=== PATIENT | female | born 1945 | race Caucasian/White ===

== ENCOUNTER 2017-09-11 08:59 | Emergency (ER) | payer MEDICARE, OTHER ==
[2017-09-11] MEDS ORDERED: Albuterol 2.5 MG/3 ML NEB.SOL* (0.083%) INH ONE (09:47)
[2017-09-11] MEDS ORDERED: Ipratropium 0.5MG/2.5ML NEB* 0.5 MG/2.5 ML NEB.SOLN INH ONE (09:47)
[2017-09-11 11:15] VITALS: BP 145/81
--- NOTE | 2017-09-11 11:21 | UC ---
Don Martinez Nilda, scribed for Kelli Rosa DO on 09/11/17 at 0955 . FLU HPI - HPI Summary HPI Summary: This patient is a 72 year old F presenting to [facility] [place] with a chief complaint of constant flu-like symptoms since yesterday. The patient rates the aching pain 8/ 10 in severity. Symptoms aggravated by movement and alleviated by rest and acetaminophen. Patient reports fever (100F), myalgia, non-productive cough, sinus congestion, left ear ache (yesterday, now resolved), and sore throat. She denies N/V, urinary symptoms, recent falls, and confusion. She also denies seasonal allergies. Flu vaccine UTD. Pt is a former smoker who states she smoked for 30- 40 years, 1 ppd. - History of Current Complaint Chief Complaint: UCRespiratory Stated Complaint: FEVER,BODYACHES,COUGH Time Seen by Provider: 09/11/17 09:05 Hx Obtained From: Patient Onset/Duration: Sudden Onset, Lasting Days, Still Present Severity Initially: Severe Pain Intensity: 8 Pain Scale Used: 0-10 Numeric Associated Signs & Symptoms: Positive: Fever, T Max - 100F, Myalgia, Cough, Sore Throat, Nasal Congestion, Headache Related Hx: Smoking - former smoker for 30-40 years 1 ppd - Allergy/Home Medications Allergies/Adverse Reactions: Allergies Allergy/AdvReac Type Severity Reaction Status Date / Time Glipizide Allergy Severe Rash Verified 09/11/17 09:09 Oxycodone Allergy Severe See Comment Verified 09/11/17 09:09 Pioglitazone [From Actos] Allergy Severe chest pain Verified 09/11/17 09:09 Ranitidine [From Zantac] Allergy Severe n/v Verified 09/11/17 09:09 Midazolam [From Versed] Allergy respiratory Verified 09/11/17 09:09 failure Belladonna AdvReac Intermediate Headache Verified 09/11/17 09:09 Diazepam [From Valium] AdvReac Intermediate Altered Verified 09/11/17 09:09 Mental Status Metformin AdvReac Intermediate GI Upset Verified 09/11/17 09:09 Home Medications: Home Medications Acetaminophen [Acetaminophen Extra Stren] 500 mg PO Q6H PRN 09/11/17 [History Confirmed 09/11/17] Liraglutide [Victoza] 1.6 mg SC QPM 09/11/17 [History Confirmed 09/11/17] PMH/Surg Hx/FS Hx/Imm Hx Endocrine History: Diabetes Cardiovascular History: Cardiac Disease Other History Of: Anticoagulant Therapy - Surgical History Surgical History: Yes Surgery Procedure, Year, and Place: hysterectomy, 1970s. cholestectomy stents, 1999 and 2000. L carotid disection W/ STENT PLACEMENT. PTCA W/ STENTS - Family History Known Family History: Positive: Cardiac Disease - father, Other - HLD Negative: Hypertension - Social History Alcohol Use: Rare Substance Use Type: None Smoking Status (MU): Former Smoker Have You Smoked in the Last Year: No - Immunization History Most Recent Influenza Vaccination: 2012 Most Recent Tetanus Shot: unknown Most Recent Pneumonia Vaccination: 2008 Review of Systems Constitutional: Fever ENT: Sore Throat, Ear Ache - left, resolved, Sinus Congestion Respiratory: Cough - nonproductive Gastrointestinal: Other - negative N/V Genitourinary: Other - negative urinary symptoms Musculoskeletal: Myalgia Neurological: Other - negative recent fall, confusion All Other Systems Reviewed And Are Negative: Yes Physical Exam Triage Information Reviewed: Yes Appearance: Well-Appearing, No Pain Distress, Well-Nourished Vital Signs: Initial Vital Signs Temp 98.2 F 09/11/17 09:14 Pulse 76 09/11/17 09:14 Resp 18 09/11/17 09:14 BP 136/62 09/11/17 09:14 Pulse Ox 96 09/11/17 09:14 Vital Signs Reviewed: Yes Eyes: Positive: Conjunctiva Clear. Negative: Discharge ENT: Positive: Hearing grossly normal, Pharynx normal, TMs normal. Negative: Tonsillar swelling, Tonsillar exudate, Trismus, Muffled voice, Hoarse voice Neck: Positive: Supple, Nontender Respiratory: Positive: No respiratory distress, No accessory muscle use, Other: - scattered wheezes and prolonged expiration on bilateral bases Cardiovascular: Positive: RRR, No Murmur Abdomen Description: Positive: Nontender, Soft. Negative: Distended, Guarding Bowel Sounds: Positive: Present Musculoskeletal Exam: Normal Neurological: Positive: Alert, Muscle Tone Normal Psychological Exam: Normal Psychological: Positive: Age Appropriate Behavior Skin Exam: Normal Skin: Positive: Other - Warm, Dry, Normal color Re-Evaluation - Re-Evaluation First Eval Re-Evaluation Time: 10:55 Comment: Pt feels better after neb treatment. Reviewed D/C instructions. Pt is agreeable to D/C. Flu Course/Dx - Course Course Of Treatment: This patient is a 72 year old F presenting to [facility] [place] with a chief complaint of constant flu-like symptoms since yesterday. The patient rates the aching pain 8/10 in severity. Symptoms aggravated by movement and alleviated by rest and acetaminophen. Patient reports fever (100F), myalgia, non-productive cough, sinus congestion, left ear ache (yesterday, now resolved) , and sore throat. She denies N/V, urinary symptoms, recent falls, and confusion. She also denies seasonal allergies. Flu vaccine UTD. Pt is a former smoker who states she smoked for 30-40 years, 1 ppd. Pending labs. Pt is negative for influenza A and B. In the [facility] course the patient was given Ventolin and Atrovan. She feels better after neb treatment. Patient will be discharged with prescription for albuterol and Mucinex and follow up from PCP. I considered starting pt on a steroid but decided against it because I did not hear wheezing on re-eval, her blood sugar has been running around the 200s, and her A1c is still around 8. Pt is also on Victoza and Lantis. Rather than starting her on steroid now, I will call pt tomorrow and see how she is doing with just an inhaler and Mucinex. The patient is agreeable with this plan. Medications reviewed. Allergies reviewed. High blood pressure noted. Pt is Dx with sinusitis with bronchospasm and elevated BP without diagnosis of HTN. - Differential Dx/Diagnosis Provider Diagnoses: Elevated blood pressure without diagnosis of hypertension. Sinusitis with bronchospasm. Discharge - Discharge Plan Condition: Stable Disposition: HOME Prescriptions: Albuterol HFA INHALER* [Ventolin HFA Inhaler*] 2 puff INH Q4H PRN #1 mdi PRN Reason: Sob/Wheezing guaiFENesin ER TAB [Mucinex*] 600 mg PO BID PRN #1 box PRN Reason: Cough Patient Education Materials: Sinusitis (ED), Bronchospasm (ED) Referrals: Lety Kirkpatrick MD [Primary Care Provider] - 2 Days Additional Instructions: TRY USING THE NETTI POT IN THE MORNINGS DISCUSSED. YOU MUST ALWAYS USE CLEAN WATER. REMEMBER, POSTURE IS AN IMPORTANT FACTOR IN SINUS DRAINAGE. MOVE YOUR NECK, BREATHE. INHALED BRONCHODILATORS: You have received a prescription for an inhaled bronchodilator -- a medication which stimulates the airways in the lung to dilate. This improves the flow of air in asthma, bronchitis, and emphysema. These medicines have some similarity to adrenaline, and can cause similar side effects: shakiness, racing heart, and a sense of nervousness. These side effects decrease with time. Contact your doctor if these side effects are severe. Do not over-use the medicine. Too-frequent use of the inhaler may make it ineffective. Call your doctor if the inhaler is not controlling your symptoms at the prescribed doses. EXPECTORANT MEDICATION: WE SENT IN A SCRIPT FOR MUCINEX SO THAT IT IS EASIER FOR YOU TO PICK THE RIGHT MED AT THE PHARMACY. HOWEVER, YOU CAN ALSO GO TO THE [facility] AND BUY PLAIN GUAIFENESIN WITHOU BINDERS OR FILLERS. An expectorant medicine has been prescribed. This type of drug makes mucous thinner, helping the sinuses, nose, and bronchial tubes to remain free of pus and mucous. Expectorants make a cough less severe and more comfortable, and help infected sinuses drain. In general, antihistamines defeat the purpose of the expectorant by making mucous thicker. They should be avoided unless specifically recommended by your physician. Your blood pressure was elevated at this visit. That does not mean you have hypertension, it is probably due to your current condition. Please follow up with your primary care provider. The documentation as recorded by the Don reeves Nilda accurately reflects the service I personally performed and the decisions made by me, Kelli Rosa DO.
== END 2017-09-11 11:30 | disposition home or self-care (01) ==
LOC: UCEAST 08:59
DX: J32.9 Chronic sinusitis, unspecified (principal); J98.01 Acute bronchospasm; R03.0 Elevated blood-pressure reading, without diagnosis of hypertension
CPT/HCPCS: 87502; 99212; G0463; J7644

== ENCOUNTER 2018-03-22 21:57 | Emergency (ER) | payer MEDICARE, OTHER ==
[2018-03-22] MEDS ORDERED: NS 0.9% 1000 ML* 1,000 ML IV ONE (22:38)
[2018-03-22] MEDS ORDERED: Pantoprazole IV* 40 MG IV ONE (22:38)
[2018-03-22] MEDS ORDERED: Morphine INJ* 2 MG/ML 1 ML SYRINGE (TWO MG - NEW SYRINGE VERSION) IV ONE (22:38)
[2018-03-22] MEDS ORDERED: Ondansetron INJ* 2 MG/ML VIAL IV ONE (22:39)
[2018-03-22 23:30] LABS: ABS Basophils 0 10^3/ul (0-0.2); ABS Eosinophils 0.1 10^3/ul (0-0.6); ABS Lymphocytes 2.1 10^3/ul (1.0-4.8); ABS Monocytes 0.4 10^3/ul (0-0.8); ABS Neutrophils 3.6 10^3/ul (1.5-7.7); ABS Nucleated RBC 0 10^3/ul; Eosinophil % 2.3 % (0-6); Hematocrit 35 % (35-47); Hemoglobin 11.2 g/dl (12.0-16.0); Lymphocyte % 34.1 % (25-47); Mean Corpuscular HGB Conc 32 g/dl (31-36); Mean Corpuscular Hemoglobin 26 pg (27-31); Mean Corpuscular Volume 80 fL (80-97); Mean Platelet Volume 8.3 um3 (7.4-10.4); Nucleated Red Blood Cells % 0.1; Platelet Count 241 10^3/ul (150-450); Red Blood Count 4.36 10^6/ul (4.00-5.40); Red Cell Distribution Width 18 % (10.5-15); White Blood Count 6.2 10^3/ul (3.5-10.8)
[2018-03-22 23:39] LABS: Urine Appearance Clear; Urine Blood Negative (Negative); Urine Color Yellow; Urine Ketones Negative (Negative); Urine Protein Negative (Negative); Urine Specific Gravity 1.008 (1.010-1.030); Urine Urobilinogen Negative (Negative)
[2018-03-22 23:40] LABS: INR 0.9 (0.77-1.02)
[2018-03-22 23:50] LABS: EGFR Non-African American 51.9 (>60)
[2018-03-23] MEDS ORDERED: Iodixanol* (CONTRAST) 320 MG/ML 100 ML SDV IV ONE (00:11)
[2018-03-23 01:14] VITALS: BP 127/83
--- NOTE | 2018-03-23 01:27 | ED ---
Abdominal Pain/Female - HPI Summary HPI Summary: This is scribe Jake Javier documenting for attending Marilyn Daniel M.D. Patient is a 72 y/o F w/ c/o upper abdominal pain radiating to back. Pain has been waxing and waning for past six days. She denies vomiting, nausea, fever, urinary symptoms, and diarrhea. She states she has had decreased appetite recently. On triage, it is noted patient had a bowel movement this morning and that she reports being gassy. Pain does not radiate to chest and patient does not drink alcohol regularly. On triage, pain is rated 10/10 and nothing is noted to aggravate/alleviate Sx. Patient has been taking Gas-X. She also takes iron twice weekly. Home medications and allergies are reviewed. I, Dr. Daniel, personally performed the services described in this documentation as scribed in my presence and it is both accurate and complete. - History of Current Complaint Chief Complaint: EDAbdPain Stated Complaint: ABD AND BACK PAIN Time Seen by Provider: 03/22/18 22:15 Hx Obtained From: Patient Onset/Duration: Lasting Days - six days, Still Present Severity Currently: Severe Pain Intensity: 10 Pain Scale Used: 0-10 Numeric - 10/10 Location: Epigastric Radiates: Yes Radiates to: Back Aggravating Factor(s): Nothing Alleviating Factor(s): Nothing Associated Signs and Symptoms: Positive: Back Pain, Other: - decreased appetite , gassy. Negative: Fever, Urinary Symptoms, Nausea, Vomiting, Diarrhea Allergies/Adverse Reactions: Allergies Allergy/AdvReac Type Severity Reaction Status Date / Time belladonna alkaloids Allergy Headache Verified 03/22/18 22:07 diazepam [From Valium] Allergy Altered Verified 03/22/18 22:07 Mental Status glipizide Allergy Rash Verified 03/22/18 22:07 midazolam [From Versed] Allergy Unknown Verified 03/22/18 22:07 Reaction Details pioglitazone [From Actos] Allergy Tingling Verified 03/22/18 22:07 ranitidine [From Zantac] Allergy Unknown Verified 03/22/18 22:07 Reaction Details metformin AdvReac GI Upset Verified 03/22/18 22:07 oxycodone AdvReac Unknown Verified 03/22/18 22:07 Reaction Details Home Medications: Home Medications Biotin 500 mcg PO DAILY 03/22/18 [History Confirmed 03/22/18] Fluconazole [Fluconazole 150 mg tab] 150 mg PO DAILY 03/22/18 [History Confirmed 03/22/18] Rabeprazole (NF) [Aciphex (NF)] 20 mg PO DAILY 03/22/18 [History Confirmed 03/22] Simvastatin [Zocor] 40 mg PO BEDTIME 03/22/18 [History Confirmed 03/22/18] PMH/Surg Hx/FS Hx/Imm Hx Endocrine/Hematology History: Reports: Hx Anticoagulant Therapy, Hx Diabetes, Hx Thyroid Disease - hypothyroid Cardiovascular History: Reports: Hx Aneurysm - dissecting left carotid artery., Hx Angina, Hx Coronary Artery Disease, Hx Embolism, Hx Hypercholesterolemia, Hx Hypertension Denies: Hx Myocardial Infarction, Hx Valvular Heart Disease, Other Cardiovascular Problems/Disorders Respiratory History: Reports: Hx Pulmonary Embolism, Other Respiratory Problems/ Disorders - hx 2 collapsed lungs. Denies: Hx Asthma, Hx Chronic Obstructive Pulmonary Disease (COPD) GI History: Reports: Hx Diverticulosis, Hx Gastroesophageal Reflux Disease, Hx Obstructive Bowel Sensory History: Reports: Hx Contacts or Glasses Opthamlomology History: Reports: Hx Contacts or Glasses Psychiatric History: Reports: Hx Anxiety, Hx Depression - Surgical History Surgery Procedure, Year, and Place: hysterectomy, 1970s. cholestectomy stents, 1999 and 2000. L carotid disection W/ STENT PLACEMENT. PTCA W/ STENTS - Immunization History Date of Tetanus Vaccine: unknown Infectious Disease History: No Infectious Disease History: Denies: History Other Infectious Disease, Traveled Outside the [place] in Last 30 Days - Family History Known Family History: Positive: Cardiac Disease - father, Other - HLD Negative: Hypertension - Social History Alcohol Use: Rare Substance Use Type: Reports: None Smoking Status (MU): Former Smoker Have You Smoked in the Last Year: No Review of Systems Negative: Fever Positive: Abdominal Pain - epigastric , Other - POSITIVE: gassy, decreased appetite . Negative: Vomiting, Diarrhea, Nausea Positive: no symptoms reported Positive: Other - back pain All Other Systems Reviewed And Are Negative: Yes Physical Exam - Summary Physical Exam Summary: VITAL SIGNS: Reviewed. GENERAL: Patient is a well-developed and nourished female who is lying comfortable in the stretcher. Patient is not in any acute respiratory distress. HEAD AND FACE: No signs of trauma. No ecchymosis, hematomas or skull depressions. No sinus tenderness. EYES: PERRLA, EOMI x 2, No injected conjunctiva, no nystagmus. EARS: Hearing grossly intact. Ear canals and tympanic membranes are within normal limits. MOUTH: Oropharynx within normal limits. NECK: Supple, trachea is midline, no adenopathy, no JVD, no carotid bruit, no c- spine tenderness, neck with full ROM. CHEST: Symmetric, no tenderness at palpation LUNGS: Clear to auscultation bilaterally. No wheezing or crackles. CVS: Regular rate and rhythm, S1 and S2 present, no murmurs or gallops appreciated. ABDOMEN: Soft, epigastric tenderness. Abdominal distention. No rebound no guarding, and no masses palpated. Bowel sounds are hyperactive. EXTREMITIES: FROM in all major joints, no edema, no cyanosis or clubbing. NEURO: Alert and oriented x 3. No acute neurological deficits. Speech is normal and follows commands. SKIN: Dry and warm Triage Information Reviewed: Yes Vital Signs On Initial Exam: Initial Vitals Temp Pulse Resp BP Pulse Ox 98.0 F 98 20 169/112 99 03/22/18 22:00 03/22/18 22:00 03/22/18 22:00 03/22/18 22:00 03/22/18 22:00 Vital Signs Reviewed: Yes Diagnostics - Vital Signs Vital Signs Temp Pulse Resp BP Pulse Ox 03/23/18 01:04 81 18 127/83 92 03/23/18 01:00 83 23 92 03/23/18 00:35 77 13 141/69 95 03/23/18 00:04 75 23 162/86 93 03/23/18 00:00 75 29 94 03/22/18 23:51 69 21 97 03/22/18 23:34 74 15 149/97 92 03/22/18 23:28 79 21 169/94 93 03/22/18 23:09 83 20 156/85 96 03/22/18 23:05 20 03/22/18 23:00 84 19 97 03/22/18 22:34 91 26 161/120 95 03/22/18 22:00 98.0 F 98 20 169/112 99 - Laboratory Lab Results: Lab Results 03/22/18 03/22/18 03/22/18 Range/Units 23:03 23:03 23:03 WBC 6.2 (3.5-10.8) 10^3/ul RBC 4.36 (4.00-5.40) 10^6/ul Hgb 11.2 L (12.0-16.0) g/dl Hct 35 (35-47) % MCV 80 (80-97) fL MCH 26 L (27-31) pg MCHC 32 (31-36) g/dl RDW 18 H (10.5-15) % Plt Count 241 (150-450) 10^3/ul MPV 8.3 (7.4-10.4) um3 Neut % (Auto) 57.4 (38-83) % Lymph % (Auto) 34.1 (25-47) % [place] % (Auto) 5.7 (0-7) % Eos % (Auto) 2.3 (0-6) % Baso % (Auto) 0.5 (0-2) % Absolute Neuts (auto) 3.6 (1.5-7.7) 10^3/ul Absolute Lymphs (auto) 2.1 (1.0-4.8) 10^3/ul Absolute Monos (auto) 0.4 (0-0.8) 10^3/ul Absolute Eos (auto) 0.1 (0-0.6) 10^3/ul Absolute Basos (auto) 0 (0-0.2) 10^3/ul Absolute Nucleated RBC 0 10^3/ul Nucleated RBC % 0.1 INR (Anticoag Therapy) 0.90 (0.77-1.02) APTT 29.3 (26.0-36.3) seconds Sodium 137 (135-145) mmol/L Potassium 3.7 (3.5-5.0) mmol/L Chloride 103 (101-111) mmol/L Carbon Dioxide 27 (22-32) mmol/L Anion Gap 7 (2-11) mmol/L BUN 15 (6-24) mg/dL Creatinine 1.04 H (0.51-0.95) mg/dL Est GFR ( Amer) 62.9 (>60) Est GFR (Non-Af Amer) 51.9 (>60) BUN/Creatinine Ratio 14.4 (8-20) Glucose 205 H (70-100) mg/dL Lactic Acid (0.5-2.0) mmol/L Calcium 9.6 (8.6-10.3) mg/dL Magnesium 2.0 (1.9-2.7) mg/dL Total Bilirubin 0.30 (0.2-1.0) mg/dL AST 23 (13-39) U/L ALT 19 (7-52) U/L Alkaline Phosphatase 77 (34-104) U/L C-Reactive Protein 3.88 (<8.01) mg/L Total Protein 6.7 (6.4-8.9) g/dL Albumin 4.0 (3.2-5.2) g/dL Globulin 2.7 (2-4) g/dL Albumin/Globulin Ratio 1.5 (1-3) Amylase 31 (29-103) U/L Lipase 22 (11.0-82.0) U/L Urine Color Urine Appearance Urine pH (5-9) Ur Specific Penn[place] (1.010-1.030) Urine Protein (Negative) Urine Ketones (Negative) Urine Blood (Negative) Urine Nitrate (Negative) Urine Bilirubin (Negative) Urine Urobilinogen (Negative) Ur Leukocyte Esterase (Negative) Urine Glucose (Negative) 03/22/18 03/22/18 Range/Units 23:03 23:28 WBC (3.5-10.8) 10^3/ul RBC (4.00-5.40) 10^6/ul Hgb (12.0-16.0) g/dl Hct (35-47) % MCV (80-97) fL MCH (27-31) pg MCHC (31-36) g/dl RDW (10.5-15) % Plt Count (150-450) 10^3/ul MPV (7.4-10.4) um3 Neut % (Auto) (38-83) % Lymph % (Auto) (25-47) % [place] % (Auto) (0-7) % Eos % (Auto) (0-6) % Baso % (Auto) (0-2) % Absolute Neuts (auto) (1.5-7.7) 10^3/ul Absolute Lymphs (auto) (1.0-4.8) 10^3/ul Absolute Monos (auto) (0-0.8) 10^3/ul Absolute Eos (auto) (0-0.6) 10^3/ul Absolute Basos (auto) (0-0.2) 10^3/ul Absolute Nucleated RBC 10^3/ul Nucleated RBC % INR (Anticoag Therapy) (0.77-1.02) APTT (26.0-36.3) seconds Sodium (135-145) mmol/L Potassium (3.5-5.0) mmol/L Chloride (101-111) mmol/L Carbon Dioxide (22-32) mmol/L Anion Gap (2-11) mmol/L BUN (6-24) mg/dL Creatinine (0.51-0.95) mg/dL Est GFR ( Amer) (>60) Est GFR (Non-Af Amer) (>60) BUN/Creatinine Ratio (8-20) Glucose (70-100) mg/dL Lactic Acid 1.5 (0.5-2.0) mmol/L Calcium (8.6-10.3) mg/dL Magnesium (1.9-2.7) mg/dL Total Bilirubin (0.2-1.0) mg/dL AST (13-39) U/L ALT (7-52) U/L Alkaline Phosphatase (34-104) U/L C-Reactive Protein (<8.01) mg/L Total Protein (6.4-8.9) g/dL Albumin (3.2-5.2) g/dL Globulin (2-4) g/dL Albumin/Globulin Ratio (1-3) Amylase (29-103) U/L Lipase (11.0-82.0) U/L Urine Color Yellow Urine Appearance Clear Urine pH 5.0 (5-9) Ur Specific Penn[place] 1.008 L (1.010-1.030) Urine Protein Negative (Negative) Urine Ketones Negative (Negative) Urine Blood Negative (Negative) Urine Nitrate Negative (Negative) Urine Bilirubin Negative (Negative) Urine Urobilinogen Negative (Negative) Ur Leukocyte Esterase Negative (Negative) Urine Glucose Negative (Negative) Result Diagrams: 03/22/18 23:03 03/22/18 23:03 Lab Statement: Any lab studies that have been ordered have been reviewed, and results considered in the medical decision making process. - CT CT abd/pel CT Interpretation: No Acute Changes CT Interpretation Completed By: Radiologist - No CT findings to correlate with patient's symptomatology. Specifically no obstructing renal or ureteral calculi. This report was reviewed by ED physician. Re-Evaluation - Re-Evaluation First Eval Re-Evaluation Time: 01:26 Comment: Discussed results of labs and tests. Patient will be discharged to home and follow up with PCP in 1-2 days. Patient is agreeable with the plan. Abdominal Pain Fem Course/Dx - Course Course Of Treatment: Patient is a 72 y/o F w/ c/o upper abdominal pain radiating to back. Pain has been waxing and waning for past six days. She denies vomiting, nausea, fever, urinary symptoms, and diarrhea. She states she has had decreased appetite recently. On triage, it is noted patient had a bowel movement this morning and that she reports being gassy. Pain does not radiate to chest and patient does not drink alcohol regularly. On triage, pain is rated 10/10 and nothing is noted to aggravate/alleviate Sx. Patient has been taking Gas-X. She also takes iron twice weekly. Physical exam showed epigastric tenderness, abdominal distention, and hyperactive bowel sounds. During ED course , patient was given fluids, pantoprazole sodium 40 mg IV ED ONCE, ondansetron Hcl 8 mg IV ONCE, morphine sulfate, 4 mg IV ED ONCE, and Iodixanol 100 ml IV ONCE. UA was normal. Other labs showed 11.2 Hbg L, MCH 26 L, RDW 18 H, creatinine 1.04 H, glucose [address] abd/pel was normal. Results were discussed with patient. Patient was diagnosed with GERD and gastritis and prescribed Pantoprazole TAB (NF) [Protonix TAB (NF)] 40 mg PO DAILY #30 tab. She will follow up with PCP in 1-2 days. Patient is agreeable with plan. - Diagnoses Provider Diagnoses: GERD (gastroesophageal reflux disease), Gastritis Discharge - Sign-Out/Discharge Documenting (check all that apply): Patient Departure - discharge - Discharge Plan Condition: Stable Disposition: HOME Prescriptions: Pantoprazole TAB (NF) [Protonix TAB (NF)] 40 mg PO DAILY #30 tab Patient Education Materials: Gastritis (ED), Gastroesophageal Reflux Disease ( ED) Referrals: Lety Kirkpatrick MD [Primary Care Provider] - 2 Days Additional Instructions: Follow up with primary care physician in 1-2 days. Return to ED for any new or worsening symptoms. - Billing Disposition and Condition Condition: STABLE Disposition: Home
--- NOTE | 2018-03-23 08:13 | RAD ---
INDICATION: Abdominal pain COMPARISON: CT May 28, 2016 TECHNIQUE: Axial source images were obtained from the hemidiaphragms to the symphysis pubis following administration of intravenous contrast only as requested by the Emergency Department. This will result in limited evaluation of the bowel. 100 mL of Visipaque 320 was administered. Coronal and sagittal reconstructed images were acquired. Lung bases: The lung bases are clear. Liver: There is hepatic steatosis. The liver is normal in size. There are no masses. There is no ductal dilatation. Gallbladder: The patient is believed to be status post cholecystectomy although there may be a small gallbladder remnant. The common duct is mildly prominent. Spleen: The spleen is normal in size. There are no masses. Pancreas: There is no focal pancreatic mass or ductal dilatation. Adrenal glands: There is no evidence of adrenal mass. Kidneys: The kidneys are normal in size and position. There are prompt nephrograms and there is prompt excretion bilaterally. There are no new renal parenchymal masses. There are renal cysts with a dominant lower pole left renal cyst measuring 4.3 cm. There is no evidence of nephrolithiasis. Adenopathy: There is no evidence of adenopathy by size criteria. Fluid collections: There are no free or localized fluid collections. Vessels:There are no significant atherosclerotic changes involving the aorta. There is no focal aneurysm. The iliac vessels are normal in caliber. The IVC appears normal. GI tract: Noncontrast imaging shows no CT head nausea upper GI tract. There there are moderate diverticula of the sigmoid colon without findings specific for acute diverticulitis. Pelvic organs: There is hysterectomy. There is no adnexal mass Bladder: There are no bladder masses. Abdominal and pelvic soft tissues: There is a tiny, fat-containing periumbilical hernia. Osseous structures: There are no acute osseous findings. Other: None 1. IMPRESSION: hepatic steatosis. 2. Cholecystectomy. Hysterectomy. 3. Sigmoid colon diverticula without CT evidence of acute diverticulitis.
== END 2018-03-23 01:36 | disposition home or self-care (01) ==
LOC: ED 21:57
DX: K29.70 Gastritis, unspecified, without bleeding (principal); K21.9 Gastro-esophageal reflux disease without esophagitis; K76.0 Fatty (change of) liver, not elsewhere classified; K57.30 Diverticulosis of large intestine without perforation or abscess without bleeding; Z86.711 Personal history of pulmonary embolism; Z79.01 Long term (current) use of anticoagulants; Z90.710 Acquired absence of both cervix and uterus; Z90.49 Acquired absence of other specified parts of digestive tract; Z88.5 Allergy status to narcotic agent; Z88.8 Allergy status to other drugs, medicaments and biological substances; Z82.49 Family history of ischemic heart disease and other diseases of the circulatory system; Z87.891 Personal history of nicotine dependence
CPT/HCPCS: 36415; 74177; 80053; 81003; 82150; 83605; 83690; 83735; 85025; 85610; 85730; 86140; 96374; 96375; 99284; J2270; J2405; Q9967

== ENCOUNTER 2018-03-25 21:54 | Emergency (ER) | payer MEDICARE, OTHER ==
[2018-03-26] MEDS ORDERED: Lidocaine 2% VISCOUS* 15 ML UDC PO ONE (00:36)
[2018-03-26] MEDS ORDERED: Al Hydrox/Mg Hydrox/Simet LIQ* 30 ML UDC PO ONE (00:36)
--- NOTE | 2018-03-26 00:41 | ED ---
Abdominal Pain/Female - HPI Summary HPI Summary: Presents with diffuse upper abdominal pain radiating to left side back, nausea, gas 1 week. Does also complain of no bowel movement for 2 days. Patient seen here 03/22/18 for same symptoms with negative CT abdomen/pelvis and negative labs. Patient states no change in symptoms since prior visit, also no relief from symptoms with prescribed Protonix. Patient denies fever, cough, sore throat , CP, SOB, V/D, change in urine. Patient also states he has been started on iron twice a week starting 1 month ago. Medical history is anemia, hypothyroid , AL 2, DM 2. Abdominal/pelvic surgical history is appendectomy, cholecystectomy, total hysterectomy. On Plavix. Denies regular EtOH. Patient was started on Protonix 40 mg by mouth daily at prior visit, states has been no change in symptoms. - History of Current Complaint Chief Complaint: EDAbdPain Stated Complaint: ABD AND BACK PAIN Time Seen by Provider: 03/26/18 00:06 Hx Obtained From: Patient Onset/Duration: Gradual Onset Timing: Intermittent Episode Lasting Severity Currently: Severe Pain Intensity: 10 Pain Scale Used: 0-10 Numeric Location: Diffuse, Discrete At: RUQ, Discrete At: LUQ, Epigastric Radiates to: Back Character: Sharp, Burning Alleviating Factor(s): Nothing Associated Signs and Symptoms: Positive: Constipation, Decreased Appetite, Nausea Allergies/Adverse Reactions: Allergies Allergy/AdvReac Type Severity Reaction Status Date / Time glipizide Allergy Rash Verified 03/22/18 22:07 midazolam [From Versed] Allergy Unknown Verified 03/22/18 22:07 Reaction Details ranitidine [From Zantac] Allergy Unknown Verified 03/22/18 22:07 Reaction Details belladonna alkaloids AdvReac Headache Verified 03/26/18 01:12 diazepam [From Valium] AdvReac Altered Verified 03/26/18 01:12 Mental Status metformin AdvReac GI Upset Verified 03/22/18 22:07 oxycodone AdvReac Unknown Verified 03/22/18 22:07 Reaction Details pioglitazone [From Actos] AdvReac Tingling Verified 03/26/18 01:12 PMH/Surg Hx/FS Hx/Imm Hx Endocrine/Hematology History: Reports: Hx Anticoagulant Therapy, Hx Diabetes, Hx Thyroid Disease - hypothyroid Cardiovascular History: Reports: Hx Aneurysm - dissecting left carotid artery., Hx Angina, Hx Coronary Artery Disease, Hx Embolism, Hx Hypercholesterolemia, Hx Hypertension Denies: Hx Myocardial Infarction, Hx Valvular Heart Disease, Other Cardiovascular Problems/Disorders Respiratory History: Reports: Hx Pulmonary Embolism, Other Respiratory Problems/ Disorders - hx 2 collapsed lungs. Denies: Hx Asthma, Hx Chronic Obstructive Pulmonary Disease (COPD) GI History: Reports: Hx Diverticulosis, Hx Gastroesophageal Reflux Disease, Hx Obstructive Bowel Sensory History: Reports: Hx Contacts or Glasses Opthamlomology History: Reports: Hx Contacts or Glasses Psychiatric History: Reports: Hx Anxiety, Hx Depression - Surgical History Surgery Procedure, Year, and Place: hysterectomy, 1970s. cholestectomy stents, 1999 and 2000. L carotid disection W/ STENT PLACEMENT. PTCA W/ STENTS - Immunization History Date of Tetanus Vaccine: unknown Infectious Disease History: Yes Infectious Disease History: Denies: History Other Infectious Disease, Traveled Outside the [place] in Last 30 Days - Family History Known Family History: Positive: None, Cardiac Disease - father, Other - HLD Negative: Hypertension - Social History Alcohol Use: Rare Substance Use Type: Reports: None Smoking Status (MU): Former Smoker Have You Smoked in the Last Year: No Review of Systems Constitutional: Negative Eyes: Negative ENT: Negative Respiratory: Negative Positive: Abdominal Pain, Nausea Genitourinary: Negative Musculoskeletal: Negative Skin: Negative Neurological: Negative Psychological: Normal All Other Systems Reviewed And Are Negative: Yes Physical Exam - Summary Physical Exam Summary: Mild diffuse tenderness to abdomen. No tenderness in left lower back. Triage Information Reviewed: Yes Vital Signs On Initial Exam: Initial Vitals Temp Pulse Resp BP Pulse Ox 97.7 F 78 20 163/107 99 03/25/18 21:55 03/25/18 21:55 03/25/18 21:55 03/25/18 21:55 03/25/18 21:55 Vital Signs Reviewed: Yes Appearance: Positive: Well-Appearing Skin: Positive: Warm Head/Face: Positive: Normal Head/Face Inspection Eyes: Positive: Normal Neck: Positive: Supple Respiratory/Lung Sounds: Positive: Clear to Auscultation Cardiovascular: Positive: Normal Abdomen Description: Positive: Other: Musculoskeletal: Positive: Normal Neurological: Positive: Normal Psychiatric: Positive: Normal AVPU Assessment: Alert - Bud Coma Scale Best Eye Response: 4 - Spontaneous Best Motor Response: 6 - Obeys Commands Best Verbal Response: 5 - Oriented Coma Scale Total: 15 Diagnostics - Vital Signs Vital Signs Temp Pulse Resp BP Pulse Ox 03/25/18 21:55 97.7 F 78 20 163/107 99 - Laboratory Result Diagrams: 03/26/18 00:36 03/26/18 00:36 Lab Statement: Any lab studies that have been ordered have been reviewed, and results considered in the medical decision making process. - Radiology KUB Xray Interpretation: Positive (See Comments) - Constipation Radiology Interpretation Completed By: ED Physician Abdominal Pain Fem Course/Dx - Course Course Of Treatment: Presents with diffuse upper abdominal pain radiating to left side back, nausea, gas 1 week. Does also complain of no bowel movement for 2 days. Patient seen here 03/22/18 for same symptoms with negative CT abdomen /pelvis and negative labs. Patient states no change in symptoms since prior visit, also no relief from symptoms with prescribed Protonix. Patient denies fever, cough, sore throat, CP, SOB, V/D, change in urine. Patient also states he has been started on iron twice a week starting 1 month ago. Medical history is anemia, hypothyroid, AL 2, DM 2. Abdominal/pelvic surgical history is appendectomy, cholecystectomy, total hysterectomy. On Plavix. Denies regular EtOH. Physical exam:Mild diffuse tenderness to abdomen. No tenderness in left lower back. Vital signs within normal limits. Prior CT abdomen/pelvis on 03/22/18 negative. Vital signs and lab work unremarkable at that time as well. Patient's symptoms greatly improved with GI cocktail. Will provide Rx for same. Abdominal pain positive for constipation. Recommend leg citrate OTC. Labs and vital signs unremarkable today. Patient has scheduled appointment with GI for follow-up. - Diagnoses Provider Diagnoses: Constipation, Gastritis Discharge - Sign-Out/Discharge Documenting (check all that apply): Patient Departure - Discharge Plan Condition: Stable Disposition: HOME Prescriptions: Al Hydrox/Mg Hydrox/Simet LIQ* [Maalox Plus*] 30 ml PO Q6H PRN 3 Days #300 udc PRN Reason: Pain Lidocaine 2% VISCOUS* [Xylocaine 2% Viscous*] 15 ml SWISH SPIT Q6H PRN #1 btl PRN Reason: Pain Ondansetron ODT TAB* [Zofran 4 MG Odt TAB*] 4 mg PO Q8H PRN 4 Days #14 tab.odt PRN Reason: Nausea Patient Education Materials: Gastritis (ED), Constipation (ED) Referrals: Lety Kirkpatrick MD [Primary Care Provider] - Additional Instructions: Follow-up with your scheduled GI appointment for further evaluation. Return to the ED for any new or worsening symptoms - Billing Disposition and Condition Condition: STABLE Disposition: Home
[2018-03-26 00:45] LABS: ABS Basophils 0.1 10^3/ul (0-0.2); ABS Eosinophils 0.2 10^3/ul (0-0.6); ABS Lymphocytes 2.5 10^3/ul (1.0-4.8); ABS Monocytes 0.5 10^3/ul (0-0.8); ABS Neutrophils 6.4 10^3/ul (1.5-7.7); ABS Nucleated RBC 0 10^3/ul; Eosinophil % 1.6 % (0-6); Hematocrit 35 % (35-47); Hemoglobin 11.6 g/dl (12.0-16.0); Lymphocyte % 25.8 % (25-47); Mean Corpuscular HGB Conc 33 g/dl (31-36); Mean Corpuscular Hemoglobin 27 pg (27-31); Mean Corpuscular Volume 80 fL (80-97); Mean Platelet Volume 8.2 um3 (7.4-10.4); Nucleated Red Blood Cells % 0; Platelet Count 260 10^3/ul (150-450); Red Cell Distribution Width 17 % (10.5-15); White Blood Count 9.7 10^3/ul (3.5-10.8)
[2018-03-26] MEDS ORDERED: Ondansetron ODT TAB* 4 MG PO ONE (00:58)
[2018-03-26] MEDS ORDERED: Ondansetron ODT TAB* 4 MG ONE (00:59)
[2018-03-26 01:03] LABS: EGFR Non-African American 56.3 (>60)
[2018-03-26 01:25] LABS: Urine Appearance Clear; Urine Blood Negative (Negative); Urine Color Yellow; Urine Ketones Negative (Negative); Urine Protein Negative (Negative); Urine Specific Gravity 1.009 (1.010-1.030); Urine Urobilinogen Negative (Negative)
[2018-03-26 01:53] VITALS: BP 130/63
--- NOTE | 2018-03-26 07:46 | RAD ---
INDICATION: Constipation. COMPARISON: Comparison is made with a prior CT of the abdomen and pelvis from March 23, 2018. TECHNIQUE: Frontal supine films of the abdomen were obtained. FINDINGS: The small bowel and colon appear nondistended. There is a mild to moderate amount of retained stool. No significant abnormal calcifications are seen. IMPRESSION: MILD TO MODERATE AMOUNT OF RETAINED STOOL. R1
== END 2018-03-26 01:52 | disposition home or self-care (01) ==
LOC: ED 21:54
DX: K29.70 Gastritis, unspecified, without bleeding (principal); K59.00 Constipation, unspecified; Z86.711 Personal history of pulmonary embolism; Z79.01 Long term (current) use of anticoagulants; I77.71 Dissection of carotid artery; Z95.5 Presence of coronary angioplasty implant and graft; Z88.5 Allergy status to narcotic agent; Z88.8 Allergy status to other drugs, medicaments and biological substances; Z87.891 Personal history of nicotine dependence
CPT/HCPCS: 36415; 74018; 80053; 81003; 83690; 85025; 86140; 99282; A9270-GY

== ENCOUNTER 2018-05-02 16:40 | Observation (INO) | payer MEDICARE, OTHER ==
[2018-05-02] MEDS ORDERED: NS 0.9% 1000 ML* 1,000 ML IV ONE (18:47)
[2018-05-02] MEDS ORDERED: Pantoprazole IV* 40 MG IV ONE (19:19)
[2018-05-02] MEDS ORDERED: Morphine VIAL* 10 MG/ML 1 ML VIAL IV ONE (19:26)
[2018-05-02] MEDS ORDERED: Ondansetron ODT TAB* 4 MG PO ONE (19:28)
--- NOTE | 2018-05-02 19:34 | ED ---
Abdominal Pain/Female - HPI Summary HPI Summary: This pt is a 73 y/o female, accompanied by daughter, presenting [facility] c/o abd pain radiating to her back. Pt states she has had uncontrollable belching. She describes back pain as "knife" through her back. Denies fever, chest pain, SOB. Pt was seen on 03/22/[address] Daniel and was prescribed Pantoprazole 40 mg for 30 days with good relief. She was also seen on 03/25/18 and was diagnosed with constipation and gastritis. Pt took hydrocodone at 14:00 today with mild relief. She has a scheduled endoscopy and colonoscopy on . PMHx includes diabetes, GA with cardiac stents, dissection of left carotid, cholecystectomy, PE. She is on Plavix, but no other anticoagulants. Vital signs while in the room: BP is 160/96, HR is 68 bpm, O2 sat of 96. Home Medications Medication Instructions Recorded Confirmed Type Clopidogrel TAB* [Plavix TAB*] 75 mg PO DAILY 07/09/12 05/02/18 History zzInsulin GLARGINE(*) [zzLantus(*)] 60 units SUBCUT QPM 07/09/12 05/02/18 History Levothyroxine TAB* [Synthroid TAB*] 25 mcg PO SEE INSTRUCTIONS 03/14/15 History Conjugated Estrogens TAB* 0.3125 mg VAGINAL WEEKLY 05/28/16 05/02/18 History [Premarin TAB*] HYDROcodone/ACETAMIN 5-325 MG* 1 tab PO Q4H PRN 05/28/16 05/02/18 History [[place] 5-325 TAB*] Lidocaine PATCH 5%* [Lidoderm 5% 1 patch TRANSDERM DAILY 05/28/16 05/02/18 History Patch*] Albuterol HFA INHALER* [Ventolin 2 puff INH Q4H PRN #1 mdi 09/11/17 05/02/18 Rx HFA Inhaler*] Biotin 500 mcg PO DAILY 03/22/18 05/02/18 History Fluconazole [Fluconazole 150 mg 150 mg PO DAILY 03/22/18 05/02/18 History tab] Rabeprazole (NF) [Aciphex (NF)] 20 mg PO DAILY 03/22/18 05/02/18 History Simvastatin [Zocor] 40 mg PO BEDTIME 03/22/18 05/02/18 History Pantoprazole TAB (NF) [Protonix 40 mg PO DAILY #30 tab 03/23/18 05/02/18 Rx TAB (NF)] Al Hydrox/Mg Hydrox/Simet LIQ* 30 ml PO Q6H PRN 3 Days #300 udc 03/26/18 Rx [Maalox Plus*] Lidocaine 2% VISCOUS* [Xylocaine 15 ml SWISH SPIT Q6H PRN #1 btl 03/26/18 Rx 2% Viscous*] Ondansetron ODT TAB* [Zofran 4 MG 4 mg PO Q8H PRN 4 Days #14 tab.odt 03/26/18 Rx Odt TAB*] - History of Current Complaint Chief Complaint: EDGeneral Stated Complaint: ABD AND BACK PAIN Time Seen by Provider: 05/02/18 18:46 Hx Obtained From: Patient, Family/[employer] - Daughter in law, Alpa; later Vicky daughter Onset/Duration: Lasting Days, Still Present Timing: Constant Severity Initially: Moderate Severity Currently: Moderate Pain Intensity: 5 Pain Scale Used: 0-10 Numeric Location: Discrete At: LUQ Radiates: Yes Radiates to: Back Character: Sharp Aggravating Factor(s): Nothing Alleviating Factor(s): Nothing Associated Signs and Symptoms: Positive: Back Pain, Nausea, Vomiting, Other: - POS: belching. Negative: Fever, Chest Pain Allergies/Adverse Reactions: Allergies Allergy/AdvReac Type Severity Reaction Status Date / Time glipizide Allergy Rash Verified 05/02/18 16:46 midazolam [From Versed] Allergy Unknown Verified 05/02/18 16:46 Reaction Details ranitidine [From Zantac] Allergy Unknown Verified 05/02/18 16:46 Reaction Details belladonna alkaloids AdvReac Headache Verified 05/02/18 16:46 diazepam [From Valium] AdvReac Altered Verified 05/02/18 16:46 Mental Status metformin AdvReac GI Upset Verified 05/02/18 16:46 oxycodone AdvReac Unknown Verified 05/02/18 16:46 Reaction Details pioglitazone [From Actos] AdvReac Tingling Verified 05/02/18 16:46 PMH/Surg Hx/FS Hx/Imm Hx Previously Healthy: No Endocrine/Hematology History: Reports: Hx Anticoagulant Therapy, Hx Diabetes, Hx Thyroid Disease - hypothyroid Cardiovascular History: Reports: Hx Aneurysm - dissecting left carotid artery., Hx Angina, Hx Coronary Artery Disease, Hx Embolism, Hx Hypercholesterolemia, Hx Hypertension Denies: Hx Myocardial Infarction, Hx Valvular Heart Disease, Other Cardiovascular Problems/Disorders Respiratory History: Reports: Hx Pulmonary Embolism, Other Respiratory Problems/ Disorders - hx 2 collapsed lungs. Denies: Hx Asthma, Hx Chronic Obstructive Pulmonary Disease (COPD) GI History: Reports: Hx Diverticulosis, Hx Gastroesophageal Reflux Disease, Hx Obstructive Bowel Sensory History: Reports: Hx Contacts or Glasses Opthamlomology History: Reports: Hx Contacts or Glasses Psychiatric History: Reports: Hx Anxiety, Hx Depression - Surgical History Surgery Procedure, Year, and Place: hysterectomy, . cholestectomy stents, 1999 and 2000. L carotid disection W/ STENT PLACEMENT in [place], [place]. PTCA W / STENTS - Immunization History Date of Tetanus Vaccine: unknown Infectious Disease History: No Infectious Disease History: Denies: History Other Infectious Disease, Traveled Outside the in Last 30 Days - Family History Known Family History: Positive: Cardiac Disease - father, Other - HLD Negative: Hypertension - Social History Lives: Alone - [facility] Alcohol Use: Rare Substance Use Type: Reports: None Smoking Status (MU): Former Smoker Have You Smoked in the Last Year: No Review of Systems Negative: Fever, Chills Negative: Chest Pain Negative: Shortness Of Breath Gastrointestinal: Other - belching Positive: Abdominal Pain, Vomiting, Nausea Positive: flank pain. Negative: burning, hematuria, incontinence Skin: Negative Neurological: Negative Psychological: Normal All Other Systems Reviewed And Are Negative: Yes Physical Exam - Summary Physical Exam Summary: Appearance: ill-appearing, moderate pain distress, well-nourished, frequent belching Skin: Warm, color reflects adequate perfusion, dry Head: Normal Head/Face inspection, atraumatic Eyes: Conjunctiva clear ENT: Normal inspection Neck: Supple, no nodes, no JVD Respiratory: Lungs clear, normal breath sounds, no respiratory distress Cardio: RRR, No murmur, pulses normal, brisk capillary refill Abdomen: Soft, tender LUQ, spleen nonpalpable, no masses, no bruits, nondistended, no guarding, no rebound, no CVAT, Bowel sounds: Present Musculoskeletal: Strength Intact/ROM intact, no calf tenderness, no edema. Psychological: Normal Neuro: Alert, muscle tone normal, no focal deficit Triage Information Reviewed: Yes Vital Signs On Initial Exam: Initial Vitals Temp Pulse Resp BP Pulse Ox 97.7 F 66 20 179/77 93 05/02/18 16:42 05/02/18 16:42 05/02/18 16:42 05/02/18 16:42 05/02/18 16:42 Vital Signs Reviewed: Yes Diagnostics - Vital Signs Vital Signs Temp Pulse Resp BP Pulse Ox 05/02/18 16:42 97.7 F 66 20 179/77 93 - Laboratory Result Diagrams: 05/02/18 19:43 05/02/18 19:43 Lab Statement: Any lab studies that have been ordered have been reviewed, and results considered in the medical decision making process. - Radiology Chest XR Xray Interpretation: No Acute Changes - no acute disease. Radiology Interpretation Completed By: ED Physician - CT CTA chest abd pelvis CT Interpretation: Positive (See Comments) CT Interpretation Completed By: Radiologist - 1. No pulmonary emboli. No findings to correlate with patient's symptomatology. 2. Mild emphysema 3. Left renal proteinaceous and hemorrhagic and simple renal cysts. 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 In the right clinical setting could be median arcuate syndrome. - EKG 19:41 Cardiac Rate: NL - at 60 bpm EKG Rhythm: Sinus Rhythm EKG Interpretation: First degree AV block (244). Nml IV CT, nml QTc EKG Comparison: No Significant Change - no acute changes compared to 05/28/16. Re-Evaluation - Re-Evaluation First Eval Re-Evaluation Time: 20:31 Change: Worse Comment: I discussed lab results of elevated D-dimer with the pt. We will order a CTA. BP is 159/73, HR is 83 bpm, O2 sat is 97% on room air. She states LUQ and left flank pain is returning. Pt is on plavix, no other anticoagulants. She has hx of PE. Will order another dose of morphine and a Protonix drip. Second Eval Re-Evaluation Time: 22:00 Change: Improved Comment: Pain is improved with dilaudid. Belching is improved on protonix drip. Pt's daughter is with her, as his her daughter in law. Third Eval Re-Evaluation Time: 23:15 Change: Worse Comment: Feels slightly nauseous. Dry heaves clear mucous. No abd pain. No chest pain. Will give zofran and try po challenge with water and crackers. Fourth Eval Re-Evaluation Time: 23:45 Change: Improved Comment: Feels better again after IV zofran. Retentive of crackers and water. Awaiting second trop. Still no CP. VS: 138/77 P72. O2 sat 97% Fifth Eval Re-Evaluation Time: 00:15 Change: Worse Comment: pt vomited approx 250cc clear fluid with cracker pieces. BP 155/91 Abdominal Pain Fem Course/Dx - Course Course Of Treatment: Pt medications reviewed this visist. Allergies noted. Elevated blood pressure noted. Pt is a 73 y/o female, with dx of gastritis and after finishing course of Pantoprazole, who presents to the ED c/o abd pain radiating to her back and belching. Chest XR is negative as read by me. Labs show D-dimer of 589. A chest/abd pelvis CTA was ordered in this pt with hx carotid artery dissection and PE. (remote 29 yo, post hysterectomy).. CTA of chest/abd pelvis shows no cause for pt's symptomatology. No PE, no aortic aneurysm or dissection. +renal cysts, celiac artery stenosis. Pt was hydrated , treated with protonix and protonix drip. Pt received morphine and zofran initially with relief, and later dilaudid 1mg IV with zofran when pain returned. Pt vomited at least twice in the ED. Two troponins were negative. Pt 's urine showed no blood to suggest renal calculi, or that renal cysts were hemorrhagic or problematic to pt. Pt is admitted for abdominal pain and continued vomiting. Reviewed median arcuate syndrome as mentioned in CT report.. Pt does not have weight loss, bruits.Pt is not thin. Pt is not in the age demographic (it is usually young, 20-40yo), pain is not associated with eating. Pt does not have a clinical picture consistent with median arcuate ligament syndrome. Discussed with Dr. Tang. Although pt does have post stenotic dilatations, initial lactate, wbc count, vital signs do not support dx ischemic bowel at this time. Dr. Tang accepts patient. Please note: RX's for pantoprazole 40mg #30 and zofran 4mgODT #12 were sent to [facility]'s pharmacy, when discharge was anticipated. Instead pt is admitted for LUQ abd pain and vomiting and further evaluation after CT result returned. . - Diagnoses Differential Diagnosis: Positive: ACS, Bowel Obstruction, Diverticulitis, GA, Pancreatitis, Pneumonia, Renal Colic, Other - PE, aortic dissection, aortic aneurysm Provider Diagnoses: LUQ abdominal pain, Vomiting, Celiac artery stenosis, Cyst of left kidney - Provider Notifications Discussed Care Of Patient With: Brigette Tang Time Discussed With Above Provider: 01:00 Instructed by Provider To: Admit As Observation Discharge - Sign-Out/Discharge Documenting (check all that apply): Patient Departure Signing out patient TO: Neftali Cunningham - Pt not signed out to Dr. Cunningham. Pt admitted to Dr. Tang - Discharge Plan Condition: Stable Disposition: ADMITTED TO [facility] Prescriptions: Ondansetron ODT TAB* [Zofran 4 MG Odt TAB*] 4 mg PO Q8H PRN #12 tab.odt PRN Reason: Nausea Pantoprazole TAB (NF) [Protonix TAB (NF)] 40 mg PO DAILY #30 tab Referrals: Lety Kirkpatrick MD [Primary Care Provider] - - Billing Disposition and Condition Condition: STABLE Disposition: Admitted to [facility] - Attestation Statements Document Initiated by Rachid: Yes Documenting Scribe: Andreia Mireles Provider For Whom Rachid is Documenting (Include Credential): Dr. Tea Rodríguez MD Scribe Attestation: Andreia Martinez, scribed for Dr. Tea Rodríguez MD on 05/03/18 at 0310. Scribe Documentation Reviewed: Yes Provider Attestation: The documentation as recorded by the Andreia reeves accurately reflects the service I personally performed and the decisions made by me, Dr. Tea Rodríguez MD
[2018-05-02 19:55] LABS: ABS Basophils 0 10^3/ul (0-0.2); ABS Eosinophils 0.1 10^3/ul (0-0.6); ABS Lymphocytes 2.1 10^3/ul (1.0-4.8); ABS Monocytes 0.4 10^3/ul (0-0.8); ABS Neutrophils 6.4 10^3/ul (1.5-7.7); ABS Nucleated RBC 0 10^3/ul; Eosinophil % 0.7 % (0-6); Hematocrit 36 % (35-47); Hemoglobin 11.7 g/dl (12.0-16.0); Lymphocyte % 23.6 % (25-47); Mean Corpuscular HGB Conc 32 g/dl (31-36); Mean Corpuscular Hemoglobin 26 pg (27-31); Mean Corpuscular Volume 79 fL (80-97); Mean Platelet Volume 8.3 um3 (7.4-10.4); Nucleated Red Blood Cells % 0; Platelet Count 255 10^3/ul (150-450); Red Blood Count 4.57 10^6/ul (4.00-5.40); Red Cell Distribution Width 16 % (10.5-15); White Blood Count 9.1 10^3/ul (3.5-10.8)
[2018-05-02 20:03] LABS: INR 0.88 (0.77-1.02)
[2018-05-02 20:14] LABS: EGFR Non-African American 61.2 (>60)
[2018-05-02] MEDS ORDERED: HYDROmorphone INJ* 2 MG/ML CARPUJECT SYRINGE IV SLOW PU ONE (20:36)
[2018-05-02] MEDS ORDERED: Iodixanol* (CONTRAST) 320 MG/ML 100 ML SDV IV ONE (20:52)
[2018-05-02] MEDS ORDERED: Pantoprazole IV* 80 MG in NS 0.9% 250 ML* 250 ML IVPB SCH (21:00)
[2018-05-02 21:02] LABS: Urine Appearance Cloudy; Urine Blood Negative (Negative); Urine Color Yellow; Urine Ketones Negative (Negative); Urine Protein Negative (Negative); Urine Red Blood Cell Trace(0-2/hpf) (Absent); Urine Specific Gravity 1.013 (1.010-1.030); Urine Urobilinogen Negative (Negative); Urine White Blood Cell 1+(6-10/hpf) (Absent)
--- NOTE | 2018-05-02 22:11 | RAD ---
EXAM: CT Angiography Chest With Intravenous Contrast CLINICAL HISTORY: 73 years old, female; Pain; Other: Luq; Abdominal pain; Flank; Other: Left; Additional info: Luq, l flank pain, HX carotid dissection, TECHNIQUE: Axial computed tomographic angiography images of the chest with intravenous contrast using pulmonary embolism protocol. All CT scans at this facility use at least one of these dose optimization techniques: automated exposure control; mA and/or kV adjustment per patient size (includes targeted exams where dose is matched to clinical indication); or iterative reconstruction. MIP reconstructed images were created and reviewed. Coronal and sagittal reformatted images were created and reviewed. CONTRAST: 100 mL of OMNI 350 administered intravenously. COMPARISON: No relevant prior studies available. FINDINGS: Pulmonary arteries: Pulmonary arteries are well opacified to the subsegmental branches. Normal caliber main pulmonary artery. No filling defects throughout the pulmonary artery tree. Aorta: The aorta demonstrates mild atherosclerotic calcification. Lungs: Mild centrilobular emphysematous disease. No pulmonary nodules, masses, or consolidations. No bronchiectasis, peribronchial thickening, or luminal defects. Pleural space: Normal. No significant effusion. No pneumothorax. Heart: There is moderate atherosclerotic calcification of the coronary arteries. No significant pericardial effusion. No evidence of RV dysfunction. Thyroid: No thyroid nodules. Bones/joints: The thoracic spine demonstrates mild degenerative changes at multiple levels. No fractures. No suspicious bone lesions. No dislocation. Soft tissues: Normal. Lymph nodes: Normal. No enlarged lymph nodes. IMPRESSION: 1. No pulmonary emboli. No additional findings to correlate with patient's symptomatology. 2. Mild emphysema. EXAM: CT Angiography Abdomen and Pelvis With Intravenous Contrast CLINICAL HISTORY: 73 years old, female; Pain; Other: Luq; Abdominal pain; Flank; Other: Left; Additional info: Luq, l flank pain, HX carotid dissection, TECHNIQUE: Axial computed tomographic angiography images of the abdomen and pelvis with intravenous contrast. All CT scans at this facility use at least one of these dose optimization techniques: automated exposure control; mA and/or kV adjustment per patient size (includes targeted exams where dose is matched to clinical indication); or iterative reconstruction. MIP reconstructed images were created and reviewed. Coronal and sagittal reformatted images were created and reviewed. CONTRAST: 100 mL of OMNI 350 administered intravenously. 100 mL of OMNI 350 administered intravenously. COMPARISON: CT - CXR PORTAP CHEST AP PORTABLE 05/02/2018 7:27 PM, A/P W CT ABD/PEL W 03/23/2018 12:24:14 AM, A/P WO CT ABD/PEL W/O 05/28/2016 11:47:00 AM FINDINGS: VASCULATURE: Aorta: The aorta demonstrates moderate atherosclerotic calcification. No abdominal aortic aneurysm. No dissection. 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 The SMA and HILARY are widely patent. Renal arteries: Mildly atherosclerotic. No occlusion or significant stenosis. Iliac arteries: Mildly atherosclerotic. No occlusion or stenosis. Lung bases: The visualized portions of the lung bases are normal. ABDOMEN: Liver: Normal. No mass. Gallbladder and bile ducts: Surgically absent gallbladder. Moderate post cholecystectomy biliary dilation. Pancreas: Mildly dilated main pancreatic duct measuring 0.3 cm. No pancreatic lesions or distal parenchymal atrophy. Spleen: Normal. No splenomegaly. Adrenals: Normal. No mass. Kidneys and ureters: High attenuating renal cyst left renal mid pole measures 1.3 cm (series 2, image 125) previously 1 cm. Bilobed simple renal cyst left lower pole measures 4.3 cm. No calculi or pelvocaliectasis. Stomach and bowel: Incompletely distended grossly normal stomach. Normal caliber small bowel. Distal colonic diverticula without adjacent inflammatory changes or associated wall thickening. PELVIS: Appendix: No findings to suggest acute appendicitis. Bladder: Thin-walled bladder with no focal nodularity, perivesicular stranding, or calcifications. Reproductive: Uterus and ovaries are surgically absent. ABDOMEN and PELVIS: Intraperitoneal space: Normal. No significant fluid collection. No free air. Bones/joints: No fractures. No suspicious bone lesions. No dislocation. Soft tissues: Bilateral fat-containing indirect inguinal hernias. No stranding. There is a fat-containing umbilical hernia. No stranding. Lymph nodes: Normal. No enlarged lymph nodes. IMPRESSION: 1. No CT findings to correlate with patient's symptomatology. 2. Left renal proteinaceous/hemorrhagic and simple renal cysts. 3. Distal colonic diverticulosis. 4. 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
[2018-05-02] MEDS ORDERED: Ondansetron INJ* 2 MG/ML VIAL IV ONE (23:08)
[2018-05-03] MEDS ORDERED: Docusate CAP* 100 MG PO PRN (02:49)
[2018-05-03] MEDS ORDERED: Senna TAB PO PRN (02:49)
[2018-05-03] MEDS ORDERED: Acetaminophen TAB* 325 MG PO PRN (02:49)
[2018-05-03] MEDS ORDERED: Al Hydrox/Mg Hydrox/Simet LIQ* 30 ML UDC PO PRN (02:49)
[2018-05-03] MEDS ORDERED: Dextrose 50% Syringe 50 ML* 25 GM/50 ML SYRINGE IV PUSH PRN (02:51)
[2018-05-03] MEDS ORDERED: HYDROcodone/ACETAMIN 5-325 MG* 1 TAB PO PRN (03:17)
[2018-05-03] MEDS ORDERED: Albuterol HFA INHALER* 8 gm MDI INH PRN (03:17)
[2018-05-03] MEDS ORDERED: Lidocaine PATCH 5%* 1 PATCH TRANSDERM PRN (03:17)
[2018-05-03] MEDS: NS 0.9% 1000 ML* 1,000 ML IV SCH ×2 (04:25→18:43)
[2018-05-03] MEDS: Ondansetron INJ* 2 MG/ML VIAL IV PRN ×2 (04:28→10:10)
[2018-05-03] MEDS: Morphine INJ* 2 MG/ML 1 ML SYRINGE (TWO MG - NEW SYRINGE VERSION) IV PRN ×3 (04:57→14:11)
[2018-05-03] MEDS ORDERED: Levothyroxine TAB* 25 MCG TAB PO SCH (06:00)
[2018-05-03] MEDS ORDERED: Heparin VIAL(*) 5000 UNITS/ML VIAL (FIVE THOUSAND) SUBCUT SCH (06:00)
--- NOTE | 2018-05-03 07:35 | HP ---
CC: Lety Kirkpatrick MD * HISTORY AND PHYSICAL: DATE OF ADMISSION: 05/03/18 TIME OF EVALUATION: 0300. PRIMARY CARE PHYSICIAN: Lety Kirkpatrick MD CHIEF COMPLAINT: Nausea, vomiting, epigastric pain. HISTORY OF PRESENT ILLNESS: This is a 73-year-old female with a past medical history of GERD who was on Protonix a month ago who presented to the emergency room with epigastric pain, nausea, vomiting. She states about a month ago, she presented to the emergency room with the similar symptoms. She was given 30 days of Protonix and then she had some constipation following that. She has been out of her Protonix for the past week and a half. She has been staying up on her prune juice and bowel regimen and has had no issues with constipation; however, for the past one and a half weeks, she has had this epigastric pain; 2 days ago increasing burping and discomfort, especially with lying down. Today, she has been having nausea, vomiting and unable to tolerate any p.o. She has a significant amount of epigastric pain radiating around her abdomen with increase in burping. She is scheduled to have an EGD done through [facility] on and a colonoscopy as well. She has been losing weight, about 18 pounds over the past 6 months, she states secondary to her new diabetic medications. Currently, she states her abdominal pain is free, she feels better; however, when they did a p.o. challenge down in the emergency room, she vomited. She states her sugars are well controlled. She has had normal bowel movements. No fevers, chest pain, shortness of breath, URI symptoms. She states that she has had issues with getting an EGD done 6 years ago under conscious sedation and she was intolerant of the medications and became very agitated and thus, are setting up to have her EGD done under general anesthesia. Otherwise, remaining review of systems is negative. In the emergency room, the patient had labs, imaging. She was given a liter of fluid, Protonix, Zofran, morphine, Dilaudid, and referred to the hospitalist service for further evaluation. PAST MEDICAL HISTORY: 1. Familial hyperlipidemia. 2. Diabetes, on insulin. 3. Coronary artery disease, status post stent. 4. History of left carotid dissection, status post stent. 5. History of a provoked PE many years ago. 6. History of a cholecystectomy. 7. History of rotator cuff injury. 8. Right hand surgery. MEDICATIONS: Need to update the home med rec as this is not accurate. The patient does not take fluconazole. 1. She states she takes Lantus 60 units at bedtime and another new agent that is not listed that she cannot name for me right now. 2. Protonix. The patient states she ran out of a week and a half ago. 3. Synthroid 25 mcg daily. 4. Premarin 0.3125 mg vaginal weekly. 5. Plavix 75 mg daily. 6. Biotin 500 mcg daily. 7. Albuterol inhaler 2 puffs every 4 hours as needed. 8. MiraLAX as needed. ALLERGIES: GLIPIZIDE, VERSED, ZANTAC, BELLADONNA ALKALOIDS, VALIUM, METFORMIN, OXYCODONE, ACTOS. FAMILY HISTORY: Mother at age 57 from stomach cancer. Father at age 93 from old age. Her brother does have cancer, unknown type. SOCIAL HISTORY: The patient lives alone. She is independent of ADLs. She states she is very active. 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 She quit smoking 20 years ago. She smoked less than a pack per day for 20 years. No alcohol use or illicit drug use. Her healthcare proxies are her daughter and [id number]. Code status , full code. REVIEW OF SYSTEMS: A 14-point review of systems as mentioned in the HPI, otherwise negative. PHYSICAL EXAMINATION GENERAL: In no acute distress. Resting comfortably. VITAL SIGNS: Temp 97.7, pulse rate 64, respiratory rate 12, oxygen saturation 90 % on room air, blood pressure 149/73. HEENT: Head: Normocephalic. Pupils are equal and reactive. Oropharynx: Mucous membranes are moist. NECK: Supple. No lymphadenopathy. RESPIRATORY: Clear to auscultation. No wheezes, rhonchi, or rales. CARDIAC: Regular rate and rhythm. Soft systolic murmur heard throughout. ABDOMEN: Positive bowel sounds, soft, nontender, nondistended. No rebound. No guarding. EXTREMITIES: No clubbing, cyanosis, or edema. NEUROLOGICAL: Alert and oriented x3. No gross focal neurologic deficits. LABORATORY DATA: White count 9.1, hemoglobin 11.7, hematocrit 36, platelets 255,000. INR 0.88. Sodium 140, potassium 4.2, chloride 105, bicarb 28, BUN 12 , creatinine 0.9, glucose 114. Troponin is 0 x3. BNP of 19. RADIOGRAPHIC DATA: CTA of the chest, abdomen, and pelvis: No pulmonary emboli , no additional findings to correlate with the patient's symptomatology, mild emphysema, left renal proteinaceous hemorrhagic and simple renal cyst, distal colonic diverticulosis findings which in the proper clinical setting suggests median arcuate syndrome. EKG shows normal sinus rhythm. ASSESSMENT: This is a 73-year-old female with past medical history of gastroesophageal reflux disease and diabetes who presented to the emergency room with epigastric pain, nausea, vomiting. Epigastric pain, nausea, and vomiting. Assessment: The patient's symptoms are consistent with gastritis. She could have also Helicobacter pylori, less likely gastroparesis as she states her diabetes is relatively well controlled and this is rather an acute onset. She is scheduled to have an EGD and colonoscopy as an outpatient. Plan: We will admit her for IV fluids, clear liquids. Recommend GI consultation for EGD as an inpatient as she has not been able to tolerate p.o. We will continue her on a PPI IV for now and Maalox as needed. CHRONIC MEDICAL PROBLEMS: Need to obtain a more accurate med rec. 1. Diabetes. Continue her on Lantus and lispro sliding scale. 2. Hyperlipidemia. Continue on her Zocor. 3. Hypothyroidism. Continue on her Synthroid. 4. Coronary artery disease. Continue on her Plavix. 5. FEN. Clear liquids, IV fluids. 6. DVT prophylaxis. The patient scores high risk. We will place her on heparin subcu t.i.d. 7. Code status. Full code. PATIENT TIME: Greater than 60 minutes were spent doing the history and physical , more than half the time was spent in direct patient contact. [id number]/[facility] #: [id number] [facility]orna
--- NOTE | 2018-05-03 07:45 | PN ---
Subjective Date of Service: 05/03/18 Interval History: Patient c/o upper abd pain pain, some nausea. Denies vomiting or diarrhea. Denies chest pain or shortness of breath. Denies fever or chills . Family History: Unchanged from Admission Social History: Unchanged from Admission Past Medical History: Unchanged from Admission Objective Active Medications: Acetaminophen (Tylenol Tab*) 650 mg PO Q4H PRN PRN Reason: FEVER/PAIN Hydrocodone Bitart/Acetaminophen ([place] 5-325 Tab*) 1 tab PO Q4H PRN PRN Reason: PAIN Al Hydrox/Mg Hydrox/Simethicone (Maalox Plus*) 30 ml PO Q6H PRN PRN Reason: INDIGESTION Albuterol (Ventolin Hfa Inhaler*) 2 puff INH Q4H PRN PRN Reason: SOB/WHEEZING Atorvastatin Calcium (Lipitor*) 20 mg PO BEDTIME [facility] Clopidogrel Bisulfate (Plavix Tab*) 75 mg PO DAILY [facility] Dextrose (D50w Syringe 50 Ml*) 12.5 gm IV PUSH .FOR FS < 60 - SS PRN PRN Reason: FS < 60 Docusate Sodium (Colace Cap*) 100 mg PO BID PRN PRN Reason: CONSTIPATION Heparin Sodium (Porcine) (Heparin Vial(*)) 5,000 units SUBCUT Q8HR [facility] Last Admin: 05/03/18 05:52 Dose: 5,000 units Sodium Chloride (Ns 0.9% 1000 Ml*) 1,000 mls @ 100 mls/hr IV PER RATE [facility] Last Admin: 05/03/18 04:25 Dose: 100 mls/hr Insulin Glargine (Lantus(*)) 60 units SUBCUT Q24H [facility] Insulin Human Lispro (Humalog*) 0 units SUBCUT AC [facility]; Protocol Levothyroxine Sodium (Synthroid Tab*) 25 mcg PO TuFr@0600 [facility] Last Admin: 05/03/18 06:48 Dose: 25 mcg Lidocaine (Lidoderm 5% Patch*) 1 patch TRANSDERM DAILY PRN PRN Reason: PAIN Morphine Sulfate (Morphine Inj ((Syringe))*) 4 mg IV Q4H PRN PRN Reason: PAIN Last Admin: 05/03/18 04:57 Dose: 4 mg Ondansetron HCl (Zofran Inj*) 4 mg IV Q4H PRN PRN Reason: NAUSEA/VOMITING Last Admin: 05/03/18 04:28 Dose: 4 mg Pantoprazole Sodium (Protonix Iv*) 40 mg IV Q24H [facility]RAD Senna (Senokot Tab*) 1 tab PO BID PRN PRN Reason: CONSTIPATION Vital Signs - 8 hr 05/02/18 05/03/18 05/03/18 23:46 00:00 00:16 Temperature Pulse Rate Respiratory 8 9 19 Rate Blood Pressure 138/77 128/102 (mmHg) O2 Sat by Pulse Oximetry 05/03/18 05/03/18 05/03/18 00:17 00:46 01:00 Temperature Pulse Rate 77 64 Respiratory 15 17 12 Rate Blood Pressure 155/91 149/73 (mmHg) O2 Sat by Pulse 90 88 Oximetry 05/03/18 05/03/18 05/03/18 03:28 04:17 04:57 Temperature 97.5 F 97.7 F Pulse Rate 80 76 Respiratory 17 16 16 Rate Blood Pressure 121/74 140/69 (mmHg) O2 Sat by Pulse 98 91 Oximetry 05/03/18 05/03/18 05/03/18 05:55 06:48 07:12 Temperature 97.9 F Pulse Rate 58 Respiratory 16 16 16 Rate Blood Pressure 117/51 (mmHg) O2 Sat by Pulse 97 Oximetry Oxygen Devices in Use Now: None Appearance: appears fatigued lying in bed, no acute distress Eyes: No Scleral Icterus Ears/Nose/Mouth/Throat: Clear Oropharnyx, Mucous Membranes Moist Neck: NL Appearance and Movements; NL JVP, Trachea Midline Respiratory: Symmetrical Chest Expansion and Respiratory Effort, Clear to Auscultation Cardiovascular: NL Sounds; No Murmurs; No JVD, No Edema Abdominal: NL Sounds; No Tenderness; No Distention Extremities: No Edema, No Clubbing, Cyanosis Skin: No Rash or Ulcers Neurological: Alert and Oriented x 3 Nutrition: - - NPO Result Diagrams: 05/02/18 19:43 05/02/18 19:43 Assess/Plan/Problems-Billing Assessment: Ms. Munoz is a 73 y.o female with a pmhx significant for htn, htld, cad, dm who presetned to the ER with upper epigastric pain and the inability to tolerate po fluids. - Patient Problems (1) Abdominal pain Current Visit: Yes Status: Acute Code(s): R10.9 - UNSPECIFIED ABDOMINAL PAIN SNOMED Code(s): 91897655 Comment: - upper epigastric pain - patient recently stopped PPI's will resume PPI- Protonix 40 mg IV - consult GI-upper endoscopy completed - wnl- GI recommended- protonix 40 mg daily and MVI every other day (2) Diabetes Current Visit: Yes Status: Acute Code(s): E11.9 - TYPE 2 DIABETES MELLITUS WITHOUT COMPLICATIONS SNOMED Code(s): 50007648 Comment: - fingerstick - Lipro SS - Lantus (3) Hypothyroid Current Visit: Yes Status: Acute Code(s): E03.9 - HYPOTHYROIDISM, UNSPECIFIED SNOMED Code(s): 95723514 Comment: Stable Continue Levothyroxine (4) DVT prophylaxis Current Visit: Yes Status: Acute Code(s): CVZ3427 - SNOMED Code(s): 759877737 Comment: heparin subQ (5) Full code status Current Visit: Yes Status: Acute Code(s): Z78.9 - OTHER SPECIFIED HEALTH STATUS SNOMED Code(s): 715074095 Status and Disposition: OBV- will discharge home when medically stable
--- NOTE | 2018-05-03 07:58 | RAD ---
Indication: Chest pain. Single frontal view of the chest performed at 1930 hours was reviewed. Comparison is made with previous exam dated May 28, 2016. No mediastinal shift is noted. Heart is of normal size and configuration. Lung chang appear clear. IMPRESSION: NO ACTIVE CARDIOPULMONARY DISEASE IS NOTED. R0
[2018-05-03] MEDS: Insulin LISPRO* 1 UNITS UNIT SUBCUT SCH ×3 (09:43→18:07)
[2018-05-03] MEDS: Pantoprazole IV* 40 MG IV SCH (10:10)
[2018-05-03] MEDS: Clopidogrel TAB* 75 MG PO SCH (10:10)
[2018-05-03] MEDS ORDERED: Buffered Lidocaine 0.9% SYRIN* 5 ML/SYR SYRINGE INTRADERM ONE (13:02)
[2018-05-03] MEDS ORDERED: PROCHLORPERAZINE INJ 5 MG/ML 2 ML VIAL IV PRN (13:04)
[2018-05-03] MEDS ORDERED: DiMENhydriNATE IV* 50 MG/ML VIAL IV PUSH PRN (13:04)
[2018-05-03] MEDS ORDERED: fentaNYL* 50 MCG/ML 2 ML VIAL (100 MCG VIAL) IV PRN (13:04)
[2018-05-03] MEDS ORDERED: Naloxone* 0.4 MG/ML 1 ML VIAL IV PRN (13:04)
[2018-05-03] MEDS ORDERED: Morphine VIAL* 10 MG/ML 1 ML VIAL ONE (14:08)
[2018-05-03] MEDS ORDERED: KETAMINE HCL* 50 MG/ML 10 ML VIAL ONE (14:10)
[2018-05-03] MEDS ORDERED: fentaNYL* 50 MCG/ML 2 ML VIAL (100 MCG VIAL) ONE (14:10)
[2018-05-03] MEDS ORDERED: Atracurium* 10 MG/ML 10 ML VIAL ONE (14:15)
[2018-05-03] MEDS ORDERED: Ondansetron INJ* 2 MG/ML VIAL ONE (15:45)
[2018-05-03] MEDS ORDERED: PROCHLORPERAZINE INJ 5 MG/ML 2 ML VIAL ONE (15:45)
[2018-05-03] MEDS ORDERED: Lidocaine 2% PF * 5 ML VIAL ONE (15:45)
[2018-05-03] MEDS ORDERED: Succinylcholine* 20 MG/ML 10 ML VIAL ONE (15:45)
[2018-05-03] MEDS ORDERED: Propofol* 10 MG/ML 20 ML BTL IV PUSH ONE (15:45)
[2018-05-03] MEDS ORDERED: Atorvastatin* 20 MG TAB PO SCH (21:00)
[2018-05-03] MEDS ORDERED: Insulin GLARGINE(*) 1 UNITS UNIT SUBCUT SCH (21:00)
[2018-05-03] MEDS: Heparin VIAL(*) 5000 UNITS/ML VIAL (FIVE THOUSAND) SUBCUT SCH ×2 (21:08→21:10)
--- NOTE | 2018-05-04 00:42 | CONS ---
GASTROENTEROLOGY CONSULT: DATE OF CONSULT: 05/03/18 CONSULTING PHYSICIANS: Dr. Lety Kirkpatrick, Dr. Brigette Tang REASON FOR CONSULTATION: Nausea, vomiting, and epigastric pain and other symptoms. HISTORY OF PRESENT ILLNESS: This 73-year-old woman, on insulin for about 5 years and starting oral agents about 10 years ago, came to the emergency room yesterday with 1 day of severe lower substernal and costal margin pain that she says was symmetric. The pain went around to her back. She vomited once. She said that 3 or 4 days ago, she was fine and actually had been fine for a month while taking Protonix. Reviewing emergency room notes from 03/23/18 and and the history recorded by the hospitalist last night following sequence comes out. She presented to the ER on 03/23/18 stating that she was taking iron a couple of times a week, but having upper abdominal pain radiating to her back. She was unclear if she was on a PPI at that time. Home medications listed did have AcipHex, but she did not recognize that name and instead says that she had been Nexium for many many years and then was unable to obtain that. She was on Zocor. She was sent out from the emergency room with Protonix. She returned to the emergency room 3 days later and was treated with a GI cocktail and recommended to take mag citrate. She was complaining of constipation. Her recollection at this time assisted by her daughter is that the second visit was for constipation. She was then apparently reasonably well for a month and ran out of the Protonix. She says she did not realize it was a maintenance med similar to Nexium. She was fine for 5 or 6 days and then the acute epigastric pain and reflux, for which had this third ER visit kicked in. It is notable that she had an upper endoscopy by Dr. Francisco in 1999 tolerating that well with 4 of Versed and 25 of Demerol. That exam was normal apart from a small hiatal hernia. There were no erosions. It is listed that she at that time had a well-established history of anxiety and functional bowel complaints. A few months before that, she had been combative during a colonoscopy that had only gotten to the mid transverse colon. With ease of that procedure or subsequent endoscopies through the [facility] system, she had intolerance of benzodiazepines and thus for complaints this year (apparently including her mild iron deficiency), a bidirectional endoscopy was planned at [place] on 04/01. She says her appetite is generally good. She is loosing weight, but she says it is from Victoza. She states she has had a history of reflux "forever." She says it often goes around to her back. 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 PAST MEDICAL HISTORY: 1. History of tobacco abuse - quitting around 2001. 2. History of left carotid disease - stented 2001. 3. Coronary artery disease - stented 1997 and 1999. 4. History of pulmonary embolism - many years ago - thought to have been provoked. 5. History of cholecystectomy in 1998. 6. Right hand surgery - summer 2017, off Plavix for 5 days for that. 7. Iron-deficiency anemia - starting iron, January 2018. 8. Diabetes - on insulin 5 years, oral agents around 2008. 9. Complete hysterectomy. 10. Hypothyroidism. FAMILY HISTORY: Mother reportedly of gastric cancer at age 57. Her father at 93 of old age. Her brother has an unknown type of cancer. 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 She currently lives alone. 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 Her healthcare proxy is her daughter and daughter-in- law. REVIEW OF SYSTEMS: No history of TIA, CVA, recent angina, or valvular heart disease. She had a negative nuclear stress test here in 2016 during a prior atypical chest admission. No history of jaundice, renal stones, gross hematuria. She cannot recall when her last colonoscopy was. PHYSICAL EXAM: She is an elderly, moderately overweight, middle-aged woman, in no distress at this time. Her color is good. Temperature 98 even, blood pressure 147/70, heart rate 71. HEENT exam shows no icterus. Mucous membranes are normal. She has no adenopathy. Lungs are clear. Heart sounds are regular. The abdomen is obese, symmetric, normal bowel sounds, soft without any guarding or tenderness. There is no mass. Extremities show no deformity, cyanosis, edema, or joint effusions. Rectal deferred. Neurologic shows her to be alert, oriented with normal cranial nerves and moving all 4 extremities equally. DIAGNOSTIC STUDIES/LAB DATA: Labs - hemoglobin 11.7, hematocrit 36, MCV 79, platelets 255. INR 0.88. BUN 12, creatinine 0.9. LFTs normal. Albumin 4.3, TSH 2.75, Radiology review - CTA of the chest showed no pulmonary embolism. There is no acute fluid collection or inflammation in the abdomen. IMPRESSION: This 73-year-old woman with long history of upper abdominal peptic - like complaints, recently seemed to be symptomatically relieved by being on pantoprazole, that followed many years on Nexium with possibly a gap between the 2. Concurrently, she had constipation and that temporarily lined up with taking iron. Iron deficiency may have been consequence of chronic disease and many years of PPI use, at least in part. Her colon has been evaluated number of times making the colon an unlikely source for subtle iron deficiency. At this time, the leading symptom requiring evaluation and stabilization is the nausea and vomiting. Upper endoscopy has been planned as an outpatient apparently for other reason and it will be done now as an inpatient to evaluate the acute nausea and vomiting. We will also get data relevant to anemia. It will be relevant for her multiple upper abdominal referable complaints. [id number]/[facility] [place] #: [id number] [facility]
[2018-05-04] MEDS: NS 0.9% 1000 ML* 1,000 ML IV SCH (04:39)
[2018-05-04] MEDS: Heparin VIAL(*) 5000 UNITS/ML VIAL (FIVE THOUSAND) SUBCUT SCH (06:01)
[2018-05-04] MEDS: Insulin LISPRO* 1 UNITS UNIT SUBCUT SCH ×2 (07:29→12:42)
[2018-05-04] MEDS: Clopidogrel TAB* 75 MG PO SCH (08:09)
[2018-05-04] MEDS: Pantoprazole IV* 40 MG IV SCH (08:33)
[2018-05-04 12:21] VITALS: BP 120/65
--- NOTE | 2018-05-04 13:24 | PRO ---
DATE: 05/03/18 - ROOM #[id number] REFERRING PHYSICIAN: Dr. Lety Kirkpatrick.* PROCEDURE: Upper gastrointestinal endoscopy through to distal duodenum (with intubation and general anesthesia). INDICATION: This 73-year-old woman came to the emergency room with nausea and vomiting. She is a longstanding diabetic, who has been on PPIs for many years. She is also a vasculopath. She quit smoking. She has been on Plavix for many years. Upper endoscopy here by Dr. Francisco in 1999 was unremarkable. At that time, she was known to have a longstanding pattern of functional bowel complaints and anxiety. ENDOSCOPIST: Dr. Mendez. MEDICATION: Anesthesia per Dr. Delarosa. FINDINGS: She is an obese, older woman, in no overt distress at this time. She was positioned on her side. EGD: Larynx - symmetric, limited views. Esophagus - easily entered and the mucosa is normal in the upper, mid, and lower esophagus with the EG junction snug at 40 without any scarring or erosions. There was no hiatal hernia. Stomach - generally normal mucosa in the cardia, fundus, body, and antrum. There was no deformity and no erosions or bleeding points. The antrum appeared normal. Duodenum - the pylorus, bulb, and second through fourth portions are normal. Coming back to the antrum and watching the mucosa closely, there did seem to be a reduction in peristaltic waves in the antrum. No actual waves were observed. Nonetheless, the stomach was empty. IMPRESSION: 1. Normal EGD. 2. Possibly reduced gastric antral peristalsis. If the patient has an improvement in her overall situation with resumption of chronic daily regimen of a PPI, then gastric motility testing can proceed at a later time as an outpatient. [id number]/[facility] #: [id number] [facility]
== END 2018-05-04 14:10 | disposition home or self-care (01) ==
LOC: ED 16:40 → SSU 05-03 02:49
PROVIDERS: ADMIT Pediatrics; ATTEND Internal Medicine
PROC: 0DJ08ZZ Inspection of Upper Intestinal Tract, Via Natural or Artificial Opening Endoscopic (ICD-10-PCS; principal; 2018-05-03 15:30)
DX: R11.2 Nausea with vomiting, unspecified (principal); R10.13 Epigastric pain; E78.5 Hyperlipidemia, unspecified; E11.9 Type 2 diabetes mellitus without complications; Z79.4 Long term (current) use of insulin; E03.9 Hypothyroidism, unspecified; I25.10 Atherosclerotic heart disease of native coronary artery without angina pectoris; Z95.5 Presence of coronary angioplasty implant and graft; Z86.711 Personal history of pulmonary embolism; Z79.899 Other long term (current) drug therapy; Z79.01 Long term (current) use of anticoagulants; Z87.891 Personal history of nicotine dependence; Z88.8 Allergy status to other drugs, medicaments and biological substances; R94.31 Abnormal electrocardiogram [ECG] [EKG]
CPT/HCPCS: 36415; 71045; 71275; 74174; 80053; 81003; 81015; 82150; 82550; 82553; 83605; 83690; 83880; 84436; 84443; 84484; 85025; 85379; 85610; 85730; 87086; 93005; 96372; 96374; 96375; 96376; 99284; A9270-GY; G0378; J0330; J0780; J1170; J1644; J2270; J2405; J2704; J3010; Q9967

== ENCOUNTER 2019-07-16 09:45 | Emergency (ER) | payer MEDICARE, OTHER ==
[2019-07-16 10:13] VITALS: BP 151/95
--- NOTE | 2019-07-16 10:37 | UC ---
Abdominal Pain Female HPI - HPI Summary HPI Summary: Pt presents to reporting 36 hours of urinary burning, frequency and mild nausea. No fevers or chills. Patient denies any hematuria. Patient reports mild low back ache. Patient has had UTIs in the past and this feels similar. States sharp pain with urination. No vaginal odor or discharge. Patient does have diabetes for which she takes insulin. Patient's medications as entered and the EMR medications were reviewed. - History of Current Complaint Chief Complaint: UCGU Stated Complaint: UTI Time Seen by Provider: 07/16/19 10:37 Hx Obtained From: Patient ?: No Onset/Duration: Gradual Onset Severity Initially: Moderate Severity Currently: Moderate Pain Intensity: 9 Allergies/Adverse Reactions: Allergies Allergy/AdvReac Type Severity Reaction Status Date / Time glipizide Allergy Rash Verified 07/16/19 10:13 midazolam [From Versed] Allergy Unknown Verified 07/16/19 10:13 Reaction Details ranitidine [From Zantac] Allergy Unknown Verified 07/16/19 10:13 Reaction Details belladonna alkaloids AdvReac Headache Verified 07/16/19 10:13 diazepam [From Valium] AdvReac Altered Verified 07/16/19 10:13 Mental Status metformin AdvReac GI Upset Verified 07/16/19 10:13 oxycodone AdvReac Unknown Verified 07/16/19 10:14 Reaction Details pioglitazone [From Actos] AdvReac Tingling Verified 07/16/19 10:13 Home Medications: Home Medications Dulaglutide [Trulicity] 1.5 mg SQ WEEKLY 07/16/19 [History Confirmed 07/16/19] Ezetimibe TAB* [Zetia TAB*] 10 mg PO DAILY 07/16/19 [History Confirmed 07/16/19] Ibuprofen TAB* [Advil TAB*] 400 mg PO Q6H PRN 07/16/19 [History Confirmed ] PMH/Surg Hx/FS Hx/Imm Hx Endocrine History: Diabetes, Dyslipidemia Cardiovascular History: Hypertension Other History Of: Anticoagulant Therapy - plavix - Surgical History Surgical History: Yes Surgery Procedure, Year, and Place: left wrist. carpal tunnel bilateral. hysterectomy, 1970s. cholecystectomy,. stents in heart 1999 and 2000. L carotid disection W/ [facility] PLACEMENT in [place], [place]. PTCA W/ STENTS - Family History Known Family History: Positive: Cardiac Disease - father, Other - HLD Negative: Hypertension - Social History Occupation: Retired Alcohol Use: monthly, ~3drinks at a time. Alcohol Amount: "once a month" and "no more than 3 drinks" Substance Use Type: None Smoking Status (MU): Former Smoker Type: Cigarettes Have You Smoked in the Last Year: No - Immunization History Most Recent Influenza Vaccination: 2017 Most Recent Tetanus Shot: unknown Most Recent Pneumonia Vaccination: 2008 Review of Systems All Other Systems Reviewed And Are Negative: Yes Constitutional: Positive: Negative Skin: Positive: Negative Eyes: Positive: Negative Gastrointestinal: Positive: Abdominal Pain - suprapubic, Nausea Genitourinary: Positive: Dysuria, Frequency, Urgency. Negative: Vaginal/Penile Discharge, Vaginal/Penile Pain Physical Exam - Summary Physical Exam Summary: Vital Signs Reviewed: Yes A+Ox3, mild discomfort Eyes: Conjunctiva Clear ENT: Hearing grossly normal neck: supple Respiratory: Positive: No respiratory distress, No accessory muscle use CTA no w/r no increased WOB, no retractioins Cardiovascular: skin color reflect adequate perfusion RRR nl s1, s2 no m/r abd: Soft + BS no guarding, no rebound mild suprapubic discomfort with direct palpation. no CVA Musculoskeletal Exam: KAY x 4 without difficulty Neurological: Positive: Alert, ambulatory without difficulty Psychological: Positive: Normal Response To Family Skin: Positive: no rash, no ecchymosis Triage Information Reviewed: Yes Vital Signs: Initial Vital Signs Temp 97.8 F 07/16/19 10:10 Pulse 83 07/16/19 10:10 Resp 16 07/16/19 10:10 BP 151/95 07/16/19 10:10 Pulse Ox 96 07/16/19 10:10 Abd Pain Female Course/Dx - Course Course Of Treatment: Pt presents with progresive urinary symptoms. No fever, chills mild low back pain no n/v VS reviewed elevated bP history of same, recommend f/u with pcp mild suprapubic tenderness reviewed with pt will Rx abd, pyridium hydrate return precautions urine culture pt in agreement with plan - Differential Dx/Diagnosis Provider Diagnosis: Dysuria Discharge ED - Sign-Out/Discharge Documenting (check all that apply): Patient Departure All imaging exams completed and their final reports reviewed: No Studies - Discharge Plan Condition: Stable Disposition: HOME Prescriptions: Nitrofurantoin Monohyd/M-Cryst [Macrobid 100 mg Capsule] 100 mg PO BID #14 cap Phenazopyridine TAB* [Pyridium 100 mg TAB*] 100 mg PO TID PRN #9 tab PRN Reason: burning with urination Patient Education Materials: Dysuria (ED) Referrals: Lety Kirkpatrick MD [Primary Care Provider] - Additional Instructions: - stay well hydrated - drink plenty of non-alcoholic, non caffinated beverages - your urine will be further tested - if you require any changes to your treatment, we will contact you - this usually take 2 days - Contact your primary doctor to arrange a follow-up appointment next week. Contact your doctor or return with questions or concerns - Take your antibiotics exactly as prescribed until gone - Take pyridium as prescribed for discomfort. This will make your urine blaze orange - this is normal - Okay to alternate ibuprofen (Advil, Motrin) and Tylenol every 3 hours for pain. Take with food - Call your doctor or return with questions or concerns - Billing Disposition and Condition Condition: STABLE Disposition: Home
--- OUTSIDE RECORDS SUMMARY | 2019-07-18 15:58 | XMS REPORT | Summary of Care ---
:1945 Author Organization [facility] Address [address] [address] Care Team Providers Name Role Phone Casimiro Lety Primary Care Provider Reason for Referral Evaluate and Establish Treatment Plan (Routine) Status Reason Specialty Diagnoses / Referred By Referred To Procedures Contact Contact Pending Review Occupational Diagnoses Carpal tunnel syndrome of right wrist Brett Cardenas, PATIENT ACCESS MANAGER [address] [id number] Reason for Visit Reason Comments Surgical Followup S/P 05/12/19 Endoscopic Carpal Tunnel Release, Left; left index trigger finger release Encounter Details Date Type Department Care Team Description 05/25/2019 Office Visit [facility] Liz Cardenas, Carpal tunnel syndrome [address] PATIENT ACCESS MANAGER of right wrist [address] [id number] [address] (Primary Dx) [phone] [address] [id number] Allergies Active Allergy Reactions Severity Noted Date Comments Pioglitazone Other 06/13/2009 Chest pain Hydrochloride Alc-Sertraline Other 09/05/2007 Arms tingly Belladonna GI Reaction 05/23/2008 Glipizide Rash 02/04/2010 Metformin Other 05/20/2009 Bloating and paradoxic elevation for blood sugar Oxycodone-Acetaminophen GI Reaction 09/20/2012 Vomiting OK with Vicodin Pneumococcal Malignant Hyperthermia 05/31/2013 High fever 103 Polysaccharides Sitagliptin Phosphate GI Reaction 01/28/2010 Statins Musculoskeletal 08/18/2013 Muscle pain and weakness. Tolerates Vytorin Valium Other 09/05/2007 Psychosis, Agitation. OK with ativan Liraglutide HUMANITIES COORDINATOR Reaction 04/30/2015 headache documented as of this encounter (statuses as of 05/25/2019) Medications Medication Sig Dispensed Refills Start Date End Date Status Blood Glucose by Does not apply route. 1. Brand:free style 1 Kit 0 2010 Active Monitoring Suppl 2. Dx: diabetes (BLOOD GLUCOSE METER) 3. Insulin dependent Does not apply Kit 4. Test Blood Glucose 2 time(s) A DAY Glucose Blood In 1 Each by In Vitro 100 Each 5 11/07/2014 Active Vitro Strip route TWICE DAILY. Lancets 30G Does not 1 Each by Does not 200 Each 3 09/10/2016 Active apply Misc apply route TWICE DAILY. Freestyle Lite E11.9, Z79.4 Insulin Pen Needle 1 Appl by Does not 100 Each 3 04/16/2017 Active (PEN NEEDLES 5/16") apply route THREE 30G X 8 MM Does not TIMES DAILY. apply Misc Glucose Blood USE 1 STRIP INSTILL 100 Strip 3 09/13/2017 Active (FREESTYLE LITE) In VITRO TWICE A DAY Vitro StripIndications: Diabetes mellitus without complication (HCC) albuterol HFA by Does not apply 0 09/11/2017 Active (VENTOLIN) 108 (90 route. Base) MCG/ACT Inhalation Aero Soln estrogens, conjugated 0.5 Applicators by 90 g 0 01/04/2018 Active (PREMARIN) 0.625 Topical route EVERY MG/GM Vaginal 7 DAYS. CreamIndications: Menopause Biotin 1000 MCG Oral Take 0.5 Tabs by 30 Tab 0 01/25/2018 Active Tab mouth DAILY. Insulin Glargine Inject 60 Units 60 mL 3 05/16/2018 Active (LANTUS SOLOSTAR) 100 beneath the skin UNIT/ML Subcutaneous EVERY BEDTIME. Solution Pen-injectorIndicatio ns: Diabetes mellitus without complication (HCC) Additional information Patient taking differently: 50 Units Subcutaneous QHS, Reported on 10/13/2018 8:51 AM Dulaglutide (TRULICITY) 1.5 Inject 1 Appl beneath 6 mL 3 10/13/2018 Active MG/0.5ML Subcutaneous Solution the skin EVERY 7 DAYS. Pen-injector docusate sodium (COLACE) 100 MG Take 1 Cap by mouth 30 Cap 0 10/13/2018 Active Oral Cap TWICE DAILY. clopidogrel (PLAVIX) 75 MG Oral Take 1 Tab by mouth 90 Tab 3 12/20/2018 Active TabIndications: Dissection of DAILY. carotid artery (HCC) diclofenac (VOLTAREN) 1 % 4 g by Topical route 1 Tube 0 12/30/2018 Active Transdermal Gel FOUR TIMES DAILY. atorvastatin (LIPITOR) 80 MG Take 1 Tab by mouth 90 Tab 3 01/02/2019 Active Oral TabIndications: Coronary DAILY. artery disease involving sleetm[place] coronary artery of sleetm[place] heart without angina pectoris HYDROcodone-acetaminophen Take 1-2 Tabs by mouth 30 Tab 0 02/20/2019 Active (NORCO) 5-325 MG Oral EVERY FOUR HOURS TabIndications: Neuralgia NEEDED (pain). Max Daily Amount: 12 Tabs. Simvastatin (ZOCOR PO) Take by mouth. 0 Active ezetimibe (ZETIA) 10 MG Oral Take 1 Tab by mouth 90 Tab 3 04/21/2019 Active TabIndications: Lipid disorder DAILY. Omeprazole 20 MG Oral Tab EC Take 1 Tab by mouth 90 Tab 3 04/21/2019 Active DAILY. lidocaine transdermal patch 1 Patch by Topical 90 Patch 3 04/21/2019 Active (LIDODERM) 5 % Apply externally route DAILY. 12 hours PatchIndications: on and 12 hours off Acromioclavicular joint pain, unspecified laterality documented as of this encounter (statuses as of 05/25/2019) Active Problems Problem Noted Date Carpal tunnel syndrome on left 04/24/2019 Tenosynovitis, wrist 08/24/2018 Radial styloid tenosynovitis 12/23/2017 EMG (electromyogram) abnormalities 11/16/2017 Carpal tunnel syndrome of right wrist 11/16/2017 Essential hypertension 12/21/2016 Lipid disorder 07/30/2015 Postoperative ileus 07/28/2012 Calculus of gallbladder with cholecystitis 07/25/2012 Polyp of colon 04/25/2012 Overview: Tubular adenoma - 04/27 colonoscopy /Dr Silva BMI 30.0-30.9,adult 01/22/2012 Overview: This patient's BMI has been calculated and is above average, and BMI management plan is completed. General patient education discussion including: obesity-related excess mortality Diverticulosis 03/22/2009 Fatty liver 03/22/2009 Overview: Lipids and sugars under good control Labs do not reveal fatty liver; noted on imaging Dissection of carotid artery 01/02/2009 Overview: 2000 - stent placed in [place] Coronary artery disease involving [place] coronary artery of [place] heart 05/31 Overview: Echo 08/24- disatolic dysfx with no LV function and no wall motion abnormality Chest pain - Evualuation at [facility] 02/2013- Had negative stress test - documented at [facility] DM (diabetes mellitus), type 2, uncontrolled with complications 05/31/2007 Overview: Care plan done 09/30 Peptic ulcer, unspecified site, unspecified as acute or chronic, without 05/31 mention of hemorrhage, perforation, or obstruction Other and unspecified hyperlipidemia 05/31/2007 Unspecified transient cerebral ischemia 03/01/2007 documented as of this encounter (statuses as of 05/25/2019) Immunizations Name Administration Dates Next Due Influenza (IM) Preservative Free 05/28/2014, 05/20/2013 Influenza Vaccine High Dose 05/31/2017 Influenza Virus Vaccine - Whole 05/31/2007 PNEUMOCOCCAL POLYSACCHARIDE VACCINE 01/28/2010 ZOSTER (ZOSTAVAX) VACCINE 10/15/2016 documented as of this encounter Social History Tobacco Use Types Packs/Day Years Used Date Former Smoker Cigarettes 0 Quit: 07/25/2002 Smokeless Tobacco: Never Used Alcohol Use Drinks/Week oz/Week Comments Yes rarely Sex Assigned at Date Recorded Not on file Job Start Date Occupation Industry Not on file Not on file Not on file Travel History Travel Start Travel End No recent travel history available. documented as of this encounter Last Filed Vital Signs Vital Sign Reading Time Taken Comments Blood Pressure 136/84 05/25/2019 10:33 AM EDT Pulse - - Temperature - - Respiratory Rate - - Oxygen Saturation - - Inhaled Oxygen Concentration - - Weight 78 kg (172 lb) 05/25/2019 10:33 AM EDT Height 172.7 cm (5' 8") 05/25/2019 10:33 AM EDT Body Mass Index 26.15 05/25/2019 10:33 AM EDT documented in this encounter Progress Notes Liz Cardenas NP - 05/25/2019 11:00 AM EDT HAND SURGERY FOLLOW UP NOTE Name: Martine Munoz : 1945 Date of service: 05/25/2019 Chief Complaint Patient presents with Surgical Followup S/P 05/12/19 Endoscopic Carpal Tunnel Release, Left; left index trigger finger release Martine Munoz is here today for follow up of above. She states she is doing well with the left but still stiffness on the right. ROS: Nursing Notes: Marti Lr LPN 05/25/2019 10:35 AM Signed NAME: Martine Munoz : 1945 DATE OF SERVICE: 05/25/2019 CONSTITUTIONAL: negative. HEENT: negative. EYES: negative. RESPIRATORY: negative. CARDIOVASCULAR: negative. GASTROINTESTINAL: negative. GENITOURINARY: negative. INTEGUMENT/BREAST: negative. HEMATOLOGIC/LYMPHATIC: negative. MUSCULOSKELETAL: Negative except s/p Endoscopic Carpal Tunnel Release, Left; left index trigger finger release NEUROLOGICAL: negative. BEHAVIORAL/PSYCH: negative. ENDOCRINE: negative. ALLERGIC/IMMUNOLOGIC: negative. AUTHOR: Marti Lr LPN 05/25/2019 10:34 I reviewed the above and have made changes as appropriate. Vitals: BP 136/84 Ht 5' 8" (1.727 m) Wt 172 lb (78 kg) BMI 26.15 kg/m2 On exam, she is alert and oriented, in no acute distress. Incisions clean and dry with sutures in place and no sign of infection. Full range of motion. Good sensation. Brisk cap refill. Assessment: ICD-9-CM ICD-10-CM 1. Carpal tunnel syndrome of right wrist 354.0 G56.01 REFER TO OCCUPATIONAL THERAPY / REHAB Plan: --occupational therapy for right --sutures removed left --No restrictions --We discussed the expected healing course. "Peak reaction" occurs at about 6 weeks, where the tissue reaction tends to be at its worst, and scars may be thickened and sensitive. Over the next few months, the scar is remodeled, and it softens and fades. Follow up: as needed Liz Cardenas NP Hand Surgery 05/25/2019 documented in this encounter Plan of Treatment Date Type Specialty Care Team Description 06/16/2019 Lab Internal Medicine 06/23/2019 Office Visit Internal Medicine Lety Kirkpatrick MD [address] [place] [address] [phone] 01/03/2020 Office Visit Cardiology Hernan Osuna MD [address] [place] [address] [phone] Name Type Priority Associated Diagnoses Order Schedule REFER TO OCCUPATIONAL Referral Routine Carpal tunnel 99 Occurrences THERAPY / REHAB syndrome of right starting 05/25/2019 wrist until 05/25/2020 Health Maintenance Due Date Last Done Comments MEDICARE ANNUAL WELLNESS 1945 VISIT HIV SCREENING 1959 PNEUMOCOCCAL 65+YRS (2 of 2 01/28/2011 01/28/2010 - PCV13) ZOSTER IMMUNIZATION SERIES 12/10/2016 10/15/2016 (2 of 3) MAMMOGRAM (SCREENING) 02/25/2017 02/26/2016, 01/10/2009 FOOT EXAM 11/09/2018 11/09/2017, 11/09/2017, 11/09/2017, Additional history exists OSTEOPOROSIS SCREENING 04/23/2019 04/23/2009 HEMOGLOBIN A1C 05/13/2019 02/10/2019, 10/06/2018, 06/07/2018, Additional history exists FALL RISK ASSESSMENT 10/13/2019 10/13/2018, 10/13/2018 URINE MICROALBUMIN 10/13/2019 10/13/2018, 05/25/2017, 06/22/2016, Additional history exists DEPRESSION SCREENING 02/21/2020 02/20/2019 LIPID DISORDER SCREENING 03/27/2020 03/27/2019, 02/10/2019, 02/10/2019, Additional history exists Diabetic Eye Exam 10/12/2020 10/12/2018, 09/20/2017 COLONOSCOPY SCREENING 06/01/2023 06/01/2018, 06/01/2018, 04/10/2015 (Postponed), Additional history exists HPV IMMUNIZATION SERIES Aged Out No longer eligible based on patient's age to complete this topic MENINGOCOCCAL VACCINE IMM Aged Out No longer eligible based on patient's age to complete this topic documented as of this encounter Goals Goal Patient Goal Associated Recent Patient-Stated? Author Type Problems Progress Blood Pressure Blood Pressure 136/84 No Crepet, < 140/90 (05/25/2019 MD Lety 10:33 AM EDT) Note: This is an individualized treatment (blood pressure) goal for Martine Munoz: Displayed above (on the left) is your goal for blood pressure control. Your most recent blood pressure is also shown above, on the right. You should try to achieve blood pressures that are lower than your goal listed above (on the left). Diabetes < 7.0 Diabetes DM (diabetes 7.7 (02/10/2019 Lety Goldberg MD mellitus), type 2, 8:13 AM EDT) uncontrolled with complications Note: Diabetes Care Plan According to current 2014 ADA guidelines the patient A1C goal is less than 7. The patient's last A1C was Lab Results Lab Results Value Date/Time GLYCO 8.9 05/18/2014 0808 GLYCO 9.2 10/10/2013 0752 The patient is:at goal . As your provider, it is important that I advise you regarding: your current medications and help you with any challenges you may face taking your medications as directed (ex. instructions, cost, side effects, and interactions). lifestyle changes:exercise, diet, glucose monitoring and medication compliance your clinical goals and how you can achieve success:weight reduction, exercise plan, diet management and glucose monitoring medication management: adjusted medications as appropriate patient education/self-management tools provided: Current self-management tools adequate To successfully manage my Diabetes I will: have lab work every six months if my previous A1c was 7 or less. If my results were greater than 7, I will have lab work every three months. My goal is to control my diabetes by keeping A1c below 7.0 take medications every day as prescribed by my healthcare provider and if unable to take them I will discuss with my provider. exercise/walk 30 minutes 5 day(s) per week. If I experience chest pain, chest tightness, or shortness of breath, I will seek medical attention immediately. check feet daily. If sores or irritation are noticed, will seek medical attention. follow a low carbohydrate and low fat diet. My goal is an LDL (bad cholesterol) number less than 100 when I have my routine lab work. check blood sugar as instructed and will call my healthcare provider if the results are consistently below 70 or above 300. I will monitor for symptoms of low blood sugar (feeling faint, dizzy, lig htheaded, jittery, sweaty, or hungry), if symptoms are noticed, I will eat or drink something (glucose tabs, orange juice, candy) to help raise sugar. record my blood sugar results (including dextrose sticks). [employer] is safe and secure way for you to do this in your medical record online. try to obtain an ideal body weight. My recent weight was Weight: 194 lb ( 87.998 kg). My weight loss goal for my next office visit is 5lbs . to prevent kidney problems common to people with diabetes I will complete a yearly Microalbumin to check for protein in urine. I will talk with my healthcare provider about medications to prevent diabetic renal disease. to prevent diabetic retinopathy I will see an eye doctor yearly. A yearly dilated eye exam helps prevent blindness. Glycohemoglobin A1c < 7.0 Diabetes 7.7 (02/10/2019 8:13 AM No Lety Kirkpatrick MD EDT) Note: This is an individualized treatment (diabetes control, HgbA1C) goal for Martine Munoz: Displayed above is your progress towards your HgbA1C goal. Your goal is shown above (on the left); your most recent HgbA1C is shown on the right. Note that lower numbers are better. Keep immunizations current Lifestyle No Lety Kirkpatrick MD Note: This is an individualized lifestyle goal for Martine Munoz: Please be sure to keep up-to-date on recommended immunizations. For example, this would include a yearly influenza vaccine. Immunization status can be seen by looking at the Health Maintenance sections of your [employer], Plan of Care, and any After Visit Summaries. Take all prescribed medications as directed Self-management No Lety Kirkpatrick MD Note: This is an individualized self-management goal for Martine Munoz: Please take all prescribed medications as directed. 1. Do not skip doses. If you cannot afford your medications, talk with your doctor. 2. Use a pill reminder system such as a pill box if needed. Your pharmacist can help you with this. 3. Contact your Pharmacy 5 days before your medication runs out. If you cannot take your medications for any reasons, talk with your doctor. 4. Please bring all of your medication bottles and inhalers (or a list of all your medications/inhalers) with you to every visit. Potential barriers to meeting all of your care plan goals will continue to be addressed on an ongoing basis. documented as of this encounter Results Not on filedocumented in this encounter Visit Diagnoses Diagnosis Carpal tunnel syndrome of right wrist - Primary Carpal tunnel syndrome documented in this encounter Guarantor Name Account Type Relation to Date of Phone Billing Patient Address Martine Munoz Personal/Family 1945 [address] [facility] (Home) [address] [place], [place] (Work) [id number] documented as of this encounter Advance Directives Code Status Date Activated Date Inactivated Comments Full Code 06/01/2009 4:12 PM 06/03/2009 5:15 PM Full Code 03/02/2007 9:04 AM 03/03/2007 5:01 AM
--- OUTSIDE RECORDS SUMMARY | 2019-07-18 15:58 | XMS REPORT | Summary of Care ---
:1945 Author Organization [facility] Address [address] [address] Care Team Providers Name Role Phone Lety Kirkpatrick Primary Care Provider Reason for Visit Reason Comments Follow Up 4 month follow up Ear Problem right ear pain and pluued Sinus Problem congestion Wrist Pain s/p surgery 2 mo, pain and bump Encounter Details Date Type Department Care Team Description 06/23/2019 Office Visit [place] [facility] Lety Kirkpatrick MD DM (diabetes mellitus), type 2, uncontrolled with complications (HCC) ( Primary Dx); Medicine [address] Screening mammogram, encounter for; [address] [place] [address] Hypothyroidism, unspecified type; [place] [address] Lipid disorder; [phone] Type 2 diabetes mellitus without complication, unspecified whether superintendent terminal insulin use (HCC) (Fax) Allergies Active Allergy Reactions Severity Noted Date [...] 09/05/2007 Psychosis, Agitation. 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 1. Brand:free style 1 Kit 0 2010 Active Monitoring Suppl 2. Dx: diabetes (BLOOD GLUCOSE METER) 3. Insulin dependent Does not apply Kit 4. Test Blood Glucose 2 time(s) A DAY Lancets 30G Does not 1 Each by [...] Reported on 10/13/2018 8:51 AM Dulaglutide (TRULICITY) Inject 1 Appl 6 mL 3 10/13/2018 Active 1.5 MG/0.5ML beneath the Subcutaneous Solution skin EVERY 7 Pen-injector DAYS. docusate sodium (COLACE) Take 1 Cap by 30 Cap 0 10/13/2018 Active 100 MG Oral Cap mouth TWICE DAILY. clopidogrel (PLAVIX) 75 Take 1 Tab by 90 Tab 3 12/20/2018 Active MG Oral TabIndications: mouth DAILY. Dissection of carotid artery (HCC) atorvastatin (LIPITOR) Take 1 Tab by 90 Tab 3 01/02/2019 Active 80 MG Oral mouth DAILY. TabIndications: Coronary artery disease involving k[place] coronary artery of klawock heart without angina pectoris HYDROcodone-acetaminophe Take 1-2 Tabs 30 Tab 0 02/20/2019 Active n (NORCO) 5-325 MG Oral by mouth EVERY TabIndications: FOUR HOURS Neuralgia NEEDED (pain). Max Daily Amount: 12 Tabs. ezetimibe (ZETIA) 10 MG Take 1 Tab by 90 Tab 3 04/21/2019 Active Oral TabIndications: mouth DAILY. Lipid disorder Omeprazole 20 MG Oral Take 1 Tab by 90 Tab 3 04/21/2019 Active Tab EC mouth DAILY. lidocaine transdermal 1 Patch by 90 Patch 3 04/21/2019 Active patch (LIDODERM) 5 % Topical route Apply externally DAILY. 12 PatchIndications: hours on and Acromioclavicular joint 12 hours off pain, unspecified laterality simvastatin (ZOCOR) 40 Take 40 mg by 0 04/21/2019 Active MG Oral Tab mouth DAILY. Glucose Blood In Vitro 1 Each by In 100 Each 5 11/07/2014 Discontinued Strip Vitro route 019 (Duplicate Order) TWICE DAILY. diclofenac (VOLTAREN) 1 4 g by Topical 1 Tube 0 12/30/2018 Discontinued % Transdermal Gel route FOUR 019 (Therapy TIMES DAILY. Completed) Simvastatin (ZOCOR PO) Take by 0 Discontinued mouth. 019 (Duplicate Order) documented as of this encounter (statuses as of 06/23/2019) Active Problems Problem Noted Date Carpal tunnel [...] 01/02/2009 Overview: 2000 - stent placed in [place] Coronary artery disease involving klawock coronary artery of klawock heart 05/31 Overview: Echo 08/24- disatolic dysfx with no LV function and no wall motion abnormality Chest pain - Evualuation at [facility] 02/2013- Had negative stress test - documented at [facility] DM (diabetes mellitus), type 2, uncontrolled with complications 05/31/2007 Overview: Care plan done 09/30 Peptic ulcer, unspecified site, unspecified as acute or chronic, without 05/31 mention of hemorrhage, perforation, or obstruction Other and unspecified hyperlipidemia 05/31/2007 Unspecified transient cerebral ischemia 03/01/2007 documented as of this encounter (statuses as of 06/23/2019) Immunizations Name Administration Dates Next Due Influenza [...] Sign Reading Time Taken Comments Blood Pressure 148/84 06/23/2019 8:42 AM EST Pulse 82 06/23/2019 8:42 AM EST Temperature - - Respiratory Rate - - Oxygen Saturation 97% 06/23/2019 8:42 AM EST Inhaled Oxygen Concentration - - Weight 80.8 kg (178 lb 1.6 oz) 06/23/2019 8:42 AM EST Height 172.7 cm (5' 8") 06/23/2019 8:42 AM EST Body Mass Index 27.08 06/23/2019 8:42 AM EST documented in this encounter Patient Instructions Patient InstructionsLety Kirkpatrick MD - 06/23/2019 8:40 AM ESTPatient Education Eustachian Tube Problems Discharge Instructions About this topic The eustachian tube is a small passageway that connects your throat to your middle ear. The eustachian tube makes sure you do not have too little or too much pressure in your ear. Sometimes, the opening to this tube gets blocked. This is called eustachian tube dysfunction or ETD. Many things may causeETD. Sometimes, it is caused by a cold, allergies, or an ear infection. A buildup of mucus can causeETD as well. Pressure changes like those that happen with riding in an airplane or scuba diving may also cause ETD. Children are more likely to have ETD. They have a shorter eustachian tube that is not curved like anadult's. It is easier for germs to get inside the ear. It is also easier for fluid to get trapped there. Children have a harder time fighting off infections. Their immune system is not as fully developed as an adult's immune system. What care is needed at home? Ask your doctor what you need to do when you go home. Make sure you ask questions if you do notunderstand what the doctor says. This way you will know what you need to do. Your doctor may place a tube inside your ear to drain any fluid. You may see yellowish, greenish, or bloody fluid coming out of your ear. What follow-up care is needed? Your doctor may ask you to make visits to the office to check on your progress. Be sure to keepthese visits. If you had surgery, there may be a tube inside the ear to drain fluids or just a cut. You may have a follow-up visit after a week to check these for healing. You doctor will tell you if you need to see a specialist. What drugs may be needed? The doctor may order drugs to: Help with pain and swelling Fight an infection Treat stuffiness or congestion Help with allergies Make sure to take all the drugs ordered by your doctor even if you are feeling better.. Will physical activity be limited? Ask your doctor if you need to avoid doing activities where you have pressure changes in your ears. This may include things like riding elevators or airplanes or going scuba diving. What problems could happen? Ear infections Dizziness Damaged eardrum What can be done to prevent this health problem? Avoid riding in airplanes and going scuba diving when you have a cough or cold. Avoid smoking and secondhand smoke. Use nose decongestants and drugs for allergies. Talk to your doctor about drugs that you can take. When do I need to call the doctor? Very bad ear pain Trouble hearing Yellow, green, or bloody drainage from the ear A stiff neck Problem swallowing Health problem is not better or you are feeling worse Helpful tips These may help open your eustachian tubes: Chewing gum Swallowing Yawning Taking a deep breath and blowing with your mouth shut and your nose pinched closed Giving your baby a bottle or a pacifier to suck Teach Back: Helping You Understand The Teach Back Method helps you understand the information we are giving you. The idea is simple. After talking with the staff, tell them in your own words what you were just told. This helps to make sure the staff has covered each thing clearly. It also helps to explain things that may have been a bit confusing. Before going home, make sure you are able to do these: I can tell you about my condition. I can tell you how to care for my ears. I can tell you what I will do if I have ear pain, drainage from my ear, or problems swallowing. Where can I learn more? FamilyDoctor.org http://familydoctor.org/familydoctor/en/diseases-conditions/eustachian-tube- dysfunction.html Last Reviewed Date 2018-06-01 Consumer Information Use and Disclaimer This information is not specific medical advice and does not replace information you receive from your health care provider. This is only a brief summary of general information. It does NOT include allinformation about conditions, illnesses, injuries, tests, procedures, treatments, therapies, discharge instructions or life-style choices that may apply to you. You must talk with your health care provider for complete information about your health and treatment options. This information should not beused to decide whether or not to accept your health care providers advice, instructions or recommendations. Only your health care provider has the knowledge and training to provide advice that isright for you. Copyright Copyright 2019 [employer] and its affiliates and/or licensors. All rights reserved. For the eustacion tube dysfunction - Decongestants may help / steroid nasal spray - documented in this encounter Progress Notes Lety Kirkpatrick MD - 06/23/2019 8:40 AM EST NAME:Martine Munoz 1945: 1945 ENC Date: 06/23/2019 CC: Chief Complaint Patient presents with Follow Up 4 month follow up Ear Problem right ear pain and pluued Sinus Problem congestion Wrist Pain s/p surgery 2 mo, pain and bump Martine Munoz is a 74-y.o. female Here for interval follow up 1. Pain in right ear - Feels like ear is plugged 2. Switched back from lipitor 80 to zocor 40 - Was having side effects of diarrhea - feels better on Zocor and results are improved- 3. Consistent with Application Services Manager and foot carwe - Taking less lantus - down to 40 units - 4. Current Outpatient Medications Medication Sig albuterol HFA (VENTOLIN) 108 (90 Base) MCG/ACT Inhalation Aero Soln by Does not apply route. atorvastatin (LIPITOR) 80 MG Oral Tab Take 1 Tab by mouth DAILY. Biotin 1000 MCG Oral Tab Take 0.5 Tabs by mouth DAILY. Blood Glucose Monitoring Suppl (BLOOD GLUCOSE METER) Does not apply Kit by Does not apply route. 1. Brand:free style 2. Dx: diabetes 3. Insulin dependent 4. Test Blood Glucose 2 time(s) A DAY clopidogrel (PLAVIX) 75 MG Oral Tab Take 1 Tab by mouth DAILY. docusate sodium (COLACE) 100 MG Oral Cap Take 1 Cap by mouth TWICE DAILY. Dulaglutide (TRULICITY) 1.5 MG/0.5ML Subcutaneous Solution Pen-injector Inject 1 Appl beneaththe skin EVERY 7 DAYS. estrogens, conjugated (PREMARIN) 0.625 MG/GM Vaginal Cream 0.5 Applicators by Topical route EVERY 7 DAYS. ezetimibe (ZETIA) 10 MG Oral Tab Take 1 Tab by mouth DAILY. Glucose Blood (FREESTYLE LITE) In Vitro Strip USE 1 STRIP INSTILL VITRO TWICE A DAY HYDROcodone-acetaminophen (NORCO) 5-325 MG Oral Tab Take 1-2 Tabs by mouth EVERY FOUR HOURS NEEDED (pain). Max Daily Amount: 12 Tabs. Insulin Glargine (LANTUS SOLOSTAR) 100 UNIT/ML Subcutaneous Solution Pen- injector Inject 60 Units beneath the skin EVERY BEDTIME. (Patient taking differently: Inject 50 Units beneath the skin EVERY BEDTIME.) Insulin Pen Needle (PEN NEEDLES 12/29") 30G X 8 MM Does not apply Misc 1 Appl by Does not apply route THREE TIMES DAILY. Lancets 30G Does not apply Misc 1 Each by Does not apply route TWICE DAILY. Freestyle Lite E11.9, Z79.4 lidocaine transdermal patch (LIDODERM) 5 % Apply externally Patch 1 Patch by Topical route DAILY. 12 hours on and 12 hours off Omeprazole 20 MG Oral Tab EC Take 1 Tab by mouth DAILY. simvastatin (ZOCOR) 40 MG Oral Tab Take 40 mg by mouth DAILY. No current facility-administered medications for this visit. Patient Active Problem List Diagnosis Date Noted Carpal tunnel syndrome on left 04/24/2019 Tenosynovitis, wrist 08/24/2018 Radial styloid tenosynovitis 12/23/2017 EMG (electromyogram) abnormalities 11/16/2017 Carpal tunnel syndrome of right wrist 11/16/2017 Essential hypertension 12/21/2016 Lipid disorder 07/30/2015 Postoperative ileus (HCC) 07/28/2012 Calculus of gallbladder with cholecystitis 07/25/2012 Polyp of colon 04/25/2012 Tubular adenoma - 04/27 colonoscopy /Dr Silva BMI 30.0-30.9,adult 01/22/2012 This patient's BMI has been calculated and is above average, and BMI management plan is completed. General patient education discussion including: obesity-related excess mortality Diverticulosis 03/22/2009 Fatty liver 03/22/2009 Lipids and sugars under good control Labs do not reveal fatty liver; noted on imaging Dissection of carotid artery (HCC) 01/02/20092000 - stent placed in [place] Coronary artery disease involving klawock coronary artery of klawock heart 05/31/2007 Echo 08/24- disatolic dysfx with no LV function and no wall motion abnormality Chest pain - Evualuation at [facility] 02/2013- Had negative stress test - documented at [facility] DM (diabetes mellitus), type 2, uncontrolled with complications (HCC) Care plan done 09/30 Peptic ulcer, unspecified site, unspecified as acute or chronic, without mention of hemorrhage, perforation, or obstruction 05/31/2007 Other and unspecified hyperlipidemia 05/31/2007 Unspecified transient cerebral ischemia 03/01/2007 Family History Problem Relation Age of Onset Colon Cancer Father Heart Unknown R CA stent ; mid LAD 08/17 Anesth Problems No family history Cancer No family history Arthritis No family history Clotting Disorder No family history Diabetes No family history Heart Disease No family history Hypertension No family history Kidney Disease No family history Thyroid Disease No family history No cardiopulmonary symptoms No upper or lower GI complaints No urinary tract symptoms. No bruising/ bleeding. No neurological complaints . No insomnia.+ . Social History Tobacco Use Smoking status: Former Smoker Packs/day: 0.00 Types: Cigarettes Last attempt to quit: 07/25/2002 Years since quittin.9 Smokeless tobacco: Never Used Substance Use Topics Alcohol use: Yes Comment: rarely Drug use: No Results for orders placed or performed in visit on 06/16/19 THYROID STIMULATING HORMONE Result Value Ref Range TSH 2.63 0.47 - 4.68 uIu/ml LIPID PROFILE Result Value Ref Range Cholesterol 165 <200 mg/dl HDL Cholesterol 41 (L) >50 mg/dl Triglycerides 143 <150 mg/dl LDL Cholesterol 95 <100 MG/DL Cholesterol / HDL Ratio 4.0 RATIO LDL / HDL Ratio 2.3 Non-HDL Cholesterol 124 0 - 130 MG/DL GLYCOHEMOGLOBIN A1C Result Value Ref Range Glycohemoglobin A1C 7.4 (H) <=5.6 % BASIC METABOLIC PANEL Result Value Ref Range Glucose 116 (H) 70 - 99 mg/dl BUN 17 7 - 17 mg/dl Creatinine 0.9 0.7 - 1.2 mg/dl Sodium 140 134 - 145 mmol/L Potassium 4.2 3.5 - 5.1 mmol/L Chloride 106 98 - 107 mmol/L CO2 24 22 - 30 mmol/L Calcium 9.3 8.3 - 10.1 mg/dl eGFR >60 See Interpretation Below ml/min/1.73ml Sq BUN/Creatinine Ratio 19 6 - 22 RATIO Anion Gap 10 3 - 11 mmol/L OBJECTIVE: BP 148/84 | Pulse 82 | Ht 5' 8" (1.727 m) | Wt 178 lb 1.6 oz (80.8 kg) | SpO2 97% | BMI 27.08 kg/m . Heent neg Lungs Clear CV rrr Abd soft, nontender, no organomegaly Ext no edema; no lesions; pulses intact Neuro: intellect intact ; motor including gait unremarkable A/P ICD-9-CM ICD-10-CM 1. DM (diabetes mellitus), type 2, uncontrolled with complications ([facility]) 250.92 E11.8 MICROALBUMIN, RANDOM URINE W/ CREATININE E11.65 BASIC METABOLIC PANEL GLYCOHEMOGLOBIN A1C 2. Screening mammogram, encounter for V76.12 Z12.31 MAMMO SCREENING TOMOSYNTHESIS BILATERAL 3. Hypothyroidism, unspecified type 244.9 E03.9 4. Lipid disorder 272.9 E78.9 5. Type 2 diabetes mellitus without complication, unspecified whether fdc insulin use ([facility]) 250.00 E11.9 Patient Instructions Patient Education Eustachian Tube Problems Discharge Instructions About this topic The eustachian tube is a small passageway that connects your throat to your middle ear. The eustachian tube makes sure you do not have too little or too much pressure in your ear. Sometimes, the opening to this tube gets blocked. This is called eustachian tube dysfunction or ETD. Many things may causeETD. Sometimes, it is caused by a cold, allergies, or an ear infection. A buildup of mucus can causeETD as well. Pressure changes like those that happen with riding in an airplane or scuba diving may also cause ETD. Children are more likely to have ETD. They have a shorter eustachian tube that is not curved like anadult's. It is easier for germs to get inside the ear. It is also easier for fluid to get trapped there. Children have a harder time fighting off infections. Their immune system is not as fully developed as an adult's immune system. What care is needed at home? Ask your doctor what you need to do when you go home. Make sure you ask questions if you do notunderstand what the doctor says. This way you will know what you need to do. Your doctor may place a tube inside your ear to drain any fluid. You may see yellowish, greenish, or bloody fluid coming out of your ear. What follow-up care is needed? Your doctor may ask you to make visits to the office to check on your progress. Be sure to keepthese visits. If you had surgery, there may be a tube inside the ear to drain fluids or just a cut. You may have a follow-up visit after a week to check these for healing. You doctor will tell you if you need to see a specialist. What drugs may be needed? The doctor may order drugs to: Help with pain and swelling Fight an infection Treat stuffiness or congestion Help with allergies Make sure to take all the drugs ordered by your doctor even if you are feeling better.. Will physical activity be limited? Ask your doctor if you need to avoid doing activities where you have pressure changes in your ears. This may include things like riding elevators or airplanes or going scuba diving. What problems could happen? Ear infections Dizziness Damaged eardrum What can be done to prevent this health problem? Avoid riding in airplanes and going scuba diving when you have a cough or cold. Avoid smoking and secondhand smoke. Use nose decongestants and drugs for allergies. Talk to your doctor about drugs that you can take. When do I need to call the doctor? Very bad ear pain Trouble hearing Yellow, green, or bloody drainage from the ear A stiff neck Problem swallowing Health problem is not better or you are feeling worse Helpful tips These may help open your eustachian tubes: Chewing gum Swallowing Yawning Taking a deep breath and blowing with your mouth shut and your nose pinched closed Giving your baby a bottle or a pacifier to suck Teach Back: Helping You Understand The Teach Back Method helps you understand the information we are giving you. The idea is simple. After talking with the staff, tell them in your own words what you were just told. This helps to make sure the staff has covered each thing clearly. It also helps to explain things that may have been a bit confusing. Before going home, make sure you are able to do these: I can tell you about my condition. I can tell you how to care for my ears. I can tell you what I will do if I have ear pain, drainage from my ear, or problems swallowing. Where can I learn more? FamilyDoctor[facility]org http://familydoctor.org/familydoctor/en/diseases-conditions/eustachian-tube- dysfunction.html Last Reviewed Date 2018-06-01 Consumer Information Use and Disclaimer This information is not specific medical advice and does not replace information you receive from your health care provider. This is only a brief summary of general information. It does NOT include allinformation about conditions, illnesses, injuries, tests, procedures, treatments, therapies, discharge instructions or life-style choices that may apply to you. You must talk with your health care provider for complete information about your health and treatment options. This information should not beused to decide whether or not to accept your health care providers advice, instructions or recommendations. Only your health care provider has the knowledge and training to provide advice that isright for you. Copyright Copyright 2019 [employer] and its affiliates and/or licensors. All rights reserved. For the eustacion tube dysfunction - Decongestants may help / steroid nasal spray - AUTHOR: Lety Kirkpatrick MD 09:22 06/23/2019 documented in this encounter Plan of Treatment Date Type Specialty Care Team Description 01/03/2020 Office Visit Cardiology Hernan Osuna MD [address] [place] [address] [phone] Name Type Priority Associated Diagnoses Order Schedule MICROALBUMIN, RANDOM Lab Routine DM (diabetes mellitus), 1 Occurrences URINE W/ CREATININE type 2, uncontrolled starting 06/22/2019 with complications until 12/19/2019 ([facility]) BASIC METABOLIC PANEL Lab Routine DM (diabetes mellitus), Expected: 2018 type 2, uncontrolled (Approximate), with complications Expires: 12/19/2019 ([facility]) GLYCOHEMOGLOBIN A1C Lab Routine DM (diabetes mellitus), Expected: 2018 type 2, uncontrolled (Approximate), with complications Expires: 12/19/2019 ([facility]) MAMMO SCREENING Imaging Routine Screening mammogram, Expected: TOMOSYNTHESIS BILATERAL encounter for 06/23/2019, Expires: 09/20/2020 Health Maintenance Due Date Last Done Comments MEDICARE ANNUAL WELLNESS 1945 VISIT ZOSTER IMMUNIZATION SERIES 12/10/2016 10/15/2016 (2 of 3) MAMMOGRAM (SCREENING) 02/25/2017 02/26/2016, 01/10/2009 FOOT EXAM 11/09/2018 11/09/2017, 11/09/2017, 11/09/2017, Additional history exists OSTEOPOROSIS SCREENING 04/23/2019 04/23/2009 HEMOGLOBIN A1C 09/16/2019 06/16/2019, 02/10/2019, 10/06/2018, Additional history exists Diabetic Eye Exam 10/12/2019 10/12/2018, 09/20/2017 FALL RISK ASSESSMENT 10/13/2019 10/13/2018, 10/13/2018 URINE MICROALBUMIN 10/13/2019 10/13/2018, 05/25/2017, 06/22/2016, Additional history exists DEPRESSION SCREENING 02/21/2020 02/20/2019 HIV SCREENING 06/23/2020 Postponed from 1959 (Patient refused) LIPID DISORDER SCREENING 06/23/2020 06/23/2019, 06/16/2019, 02/10/2019, Additional history exists COLONOSCOPY SCREENING 06/01/2023 06/01/2018, 06/01/2018, 04/10/2015 (Postponed), Additional history exists PNEUMOCOCCAL 65+YRS (2 of 2 06/22/2030 01/28/2010 Postponed from - PCV13) 01/28/2011 (Patient refused) HPV IMMUNIZATION SERIES Aged Out No longer eligible based on patient's age to complete this topic MENINGOCOCCAL VACCINE IMM Aged Out No longer eligible based on patient's age to complete this topic documented as of this encounter Goals Goal Patient Goal Associated Recent Patient-Stated? Author Type Problems Progress Blood Pressure Blood Pressure 148/84 No Casimiro, < 140/90 (06/23/2019 MD Lety 8:42 AM EST) Note: This is an individualized treatment (blood pressure) goal for Martine Munoz: Displayed above (on the left) is your goal for blood pressure control. Your most recent blood pressure is also shown above, on the right. You should try to achieve blood pressures that are lower than your goal listed above (on the left). Diabetes < 7.0 Diabetes DM (diabetes 7.4 (06/16/2019 No Lety Kirkpatrick MD mellitus), type 2, 8:11 AM EDT) uncontrolled with complications Note: Diabetes [...] my blood sugar results (including dextrose sticks). [address] is safe and secure way for you [...] prevent blindness. Glycohemoglobin A1c < 7.0 Diabetes 7.4 (06/16/2019 8:11 AM No Lety Kirkpatrick MD EDT) Note: [...] filedocumented in this encounter Visit Diagnoses Diagnosis DM (diabetes mellitus), type 2, uncontrolled with complications (HCC) - Primary Type II or unspecified type diabetes mellitus with unspecified complication, uncontrolled Screening mammogram, encounter for Hypothyroidism, unspecified type Lipid disorder Unspecified disorder of lipoid metabolism Type 2 diabetes mellitus without complication, unspecified whether superintendent terminal insulin use (HCC) documented in this encounter Guarantor Name Account Type Relation to Date of Phone Billing Patient Address Martine Munoz Personal/Family 1945 [address] (Home) [address] [place], [place] (Work) [id number] documented as of this encounter Advance Directives Code Status Date Activated Date Inactivated Comments Full Code 06/01/2009 4:12 PM 06/03/2009 5:15 PM Full Code 03/02/2007 9:04 AM 03/03/2007 5:01 AM
--- NOTE | 2019-07-18 16:09 | UC ---
- Progress Note Progress Note: Patient urine culture final for e coli, which is sensitive to the antibiotic given to her for treatment. no change in treatment necessary at this time. Course/Dx - Diagnoses Provider Diagnoses: Dysuria Discharge ED - Sign-Out/Discharge Documenting (check all that apply): Post-Discharge Follow Up All imaging exams completed and their final reports reviewed: No Studies - Discharge Plan Condition: Stable Disposition: HOME Prescriptions: Nitrofurantoin Monohyd/M-Cryst [Macrobid 100 mg Capsule] 100 mg PO BID #14 cap Phenazopyridine TAB* [Pyridium 100 mg TAB*] 100 mg PO TID PRN #9 tab PRN Reason: burning with urination Patient Education Materials: Dysuria (ED) Referrals: Lety Kirkpatrick MD [Primary Care Provider] - Additional Instructions: - stay well hydrated - drink plenty of non-alcoholic, non caffinated beverages - your urine will be further tested - if you require any changes to your treatment, we will contact you - this usually take 2 days - Contact your primary doctor to arrange a follow-up appointment next week. Contact your doctor or return with questions or concerns - Take your antibiotics exactly as prescribed until gone - Take pyridium as prescribed for discomfort. This will make your urine blaze orange - this is normal - Okay to alternate ibuprofen (Advil, Motrin) and Tylenol every 3 hours for pain. Take with food - Call your doctor or return with questions or concerns - Billing Disposition and Condition Condition: STABLE Disposition: Home - Attestation Statements Provider Attestation: I was available for consult. This patient was seen by the MARK. The patient was not presented to, seen by, or examined by me. -Sameer
== END 2019-07-16 10:53 | disposition home or self-care (01) ==
LOC: UCEAST 09:45
DX: N39.0 Urinary tract infection, site not specified (principal); B96.20 Unspecified Escherichia coli [E. coli] as the cause of diseases classified elsewhere; Z87.440 Personal history of urinary (tract) infections; R11.0 Nausea; M54.5 Low back pain; E11.9 Type 2 diabetes mellitus without complications; Z79.4 Long term (current) use of insulin; Z79.84 Long term (current) use of oral hypoglycemic drugs; E78.5 Hyperlipidemia, unspecified; I10 Essential (primary) hypertension; Z79.01 Long term (current) use of anticoagulants; Z95.5 Presence of coronary angioplasty implant and graft; Z88.5 Allergy status to narcotic agent; Z88.8 Allergy status to other drugs, medicaments and biological substances; Z87.891 Personal history of nicotine dependence
CPT/HCPCS: 81003; 87077; 87086; 87186; 99212; G0463

== ENCOUNTER 2019-08-16 18:11 | Observation (INO) | payer MEDICARE, OTHER ==
[2019-08-16] MEDS ORDERED: Ondansetron INJ* 2 MG/ML VIAL IV ONE (18:32)
[2019-08-16] MEDS ORDERED: Morphine INJ* 2 MG/ML 1 ML SYRINGE (TWO MG - NEW SYRINGE VERSION) IV ONE (18:32)
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
[2019-08-16 18:56] LABS: ABS Eosinophils 0.2 10^3/ul (0-0.6); ABS Lymphocytes 1.7 10^3/ul (1.0-4.8); ABS Monocytes 0.4 10^3/ul (0-0.8); ABS Neutrophils 4.1 10^3/ul (1.5-7.7); Eosinophil % 3.1 %; Hematocrit 32 % (35-47); Lymphocyte % 26.1 %; Mean Corpuscular HGB Conc 31 g/dL (31-36); Mean Corpuscular Hemoglobin 22 pg (27-31); Mean Corpuscular Volume 72 fL (80-97); Mean Platelet Volume 7.8 fL (7.4-10.4); Nucleated Red Blood Cells % 0.1; Platelet Count 273 10^3/uL (150-450); Red Blood Count 4.47 10^6 /uL (3.70-4.87); Red Cell Distribution Width 17 % (10-15); White Blood Count 6.4 10^3/uL (3.5-10.8)
[2019-08-16 19:17] LABS: Albumin 4.2 g/dL (3.2-5.2); Albumin/Globulin Ratio 1.6 (1-3); BUN/Creatinine Ratio 18.5 (8-20); Calcium 9.5 mg/dL (8.6-10.3); EGFR Non-African American 59.5 (>60); Globulin 2.6 g/dL (2-4); Potassium 4.1 mmol/L (3.5-5.0); Total Bilirubin 0.3 mg/dL (0.2-1.0); Total Protein 6.8 g/dL (6.4-8.9)
--- OUTSIDE RECORDS SUMMARY | 2019-08-16 19:17 | XMS REPORT | Summary of Care ---
:1945 Author Organization [facility] Address [address] [address] Care Team Providers Name Role Phone IramLety tapia Primary Care Provider Reason for Referral Evaluate and Establish Treatment Plan (Routine) Status Reason Specialty Diagnoses / Referred By Referred To Procedures Contact Contact Pending Review Occupational Diagnoses Stiffness in joint Liu, Therapy MD Pino [address] [facility] [address] [place] [address] Reason for Visit Reason Comments New Patient Left wrist. Patient here for a second opinion. Surgery 05-12-19. Encounter Details Date Type Department Care Team Description 07/20/2019 Office Visit [facility] - Pino Hatfield, Stiffness in joint Awa FAGAN (Primary Dx) [address] [facility] [address] [facility] [address] [phone] [facility] [phone] Allergies Active Allergy Reactions Severity Noted Date [...] 09/05/2007 Psychosis, Agitation. 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 carotid artery (HCC) atorvastatin (LIPITOR) 80 MG Take 1 Tab by mouth 90 Tab 3 01/02/2019 Active Oral TabIndications: Coronary DAILY. artery disease involving susan[place] coronary artery of [place] heart without angina pectoris HYDROcodone-acetaminophen Take 1-2 Tabs by mouth 30 Tab 0 02/20/2019 Active (NORCO) 5-325 MG Oral EVERY FOUR HOURS TabIndications: Neuralgia NEEDED (pain). Max Daily Amount: 12 Tabs. ezetimibe (ZETIA) 10 MG Oral Take 1 [...] hours off Acromioclavicular joint pain, unspecified laterality simvastatin (ZOCOR) 40 MG Oral Take 40 mg by mouth 0 04/21/2019 Active Tab DAILY. documented as of this encounter (statuses as of 07/20/2019) Active Problems Problem Noted Date Carpal tunnel [...] 01/02/2009 Overview: 2000 - stent placed in [place] Coronary artery disease involving susanville coronary artery of [place] heart 05/31 Overview: Echo 08/24- disatolic dysfx with no LV function and no wall motion abnormality Chest pain - Evualuation at [facility] 02/2013- Had negative stress test - documented at [facility] DM (diabetes mellitus), type 2, uncontrolled with complications 05/31/2007 Overview: Care plan done 09/30 Peptic ulcer, unspecified site, unspecified as acute or chronic, without 05/31 mention of hemorrhage, perforation, or obstruction Other and unspecified hyperlipidemia 05/31/2007 Unspecified transient cerebral ischemia 03/01/2007 documented as of this encounter (statuses as of 07/20/2019) Immunizations Name Administration Dates Next Due Influenza [...] Sign Reading Time Taken Comments Blood Pressure 122/71 07/20/2019 8:01 AM EST Pulse 66 07/20/2019 8:01 AM EST Temperature - - Respiratory Rate - - Oxygen Saturation - - Inhaled Oxygen Concentration - - Weight 80.7 kg (178 lb) 07/20/2019 8:01 AM EST Height 172.7 cm (5' 8") 07/20/2019 8:01 AM EST Body Mass Index 27.06 07/20/2019 8:01 AM EST documented in this encounter Progress Notes Pino Hatfield MD - 07/20/2019 8:00 AM EST Name: Martine Munoz : 1945 Date of service: 07/20/2019 Chief Complaint Patient presents with New Patient Left wrist. Patient here for a second opinion. Surgery 05-12-19. HPI: Martine Munoz is a 74-y.o. y/o female, who presents at the request of Self -Referred for evaluation. This is a patient who has had multiple hand surgeries. She had a carpal tunnel and ganglion excision on the right approximately 2 years ago. She became stiff after that and never regained full motion. This year she had a large amount of Alexandra synovitis removed from her third compartment and fourth compartment and also carpal tunnel release. She had delayed healing and that has stiffness. She does not know of any family history of rheumatological disorders. She has never seen a fibrous wallboard inspector or had rheumatological labs PAST MEDICAL HISTORY: She has a past medical history of Arthritis, Carotid artery dissection (HCC),Coronary atherosclerosis of unspecified type of vessel, [place] or graft (05/31/2007), Depressive disorder, not elsewhere classified (), DVT (deep venous thrombosis) ([facility]), Fatty liver (03/22/2009), Gastritis , Intermediate coronary syndrome (HCC), Other and unspecified hyperlipidemia (), Peptic ulcer, unspecified site, unspecified as acute or chronic, without mention of hemorrhage, perforation, or obstruction (05/31/2007), Polyp of colon (04/25/2012), Postmenopausal, TRANSIENT CEREBRAL ISCHEMIA NOS (03/01/2007 ), and Type II or unspecified type diabetes mellitus without mention of complication, not stated as uncontrolled (05/31/2007). PAST SURGICAL HISTORY: She has a past surgical history that includes colonoscopy diagnostic; egd (mao / non mao); balo angiop icra prq; pr appendectomy; pr hysterectomy vaginal w/ repair of enterocele; colonoscopy (2011); laparoscopic cholecystectomy (07/25/2012); pr wrist arthroscop,release xvers lig (Right, 01/25/2018); carpal tunnel release; colonoscopy (N/A, 2017); pr wrist arthroscop,release xvers lig (Left, 05/12/2019); and pr incise finger tendon sheath. MEDICATIONS: Current Outpatient Medications: albuterol HFA (VENTOLIN) 108 (90 Base) MCG/ACT Inhalation Aero Soln, by Does not apply route., Disp: , Rfl: atorvastatin (LIPITOR) 80 MG Oral Tab, Take 1 Tab by mouth DAILY., Disp : 90 Tab, Rfl: 3 Biotin 1000 MCG Oral Tab, Take 0.5 Tabs by mouth DAILY., Disp: 30 Tab, Rfl: 0 Blood Glucose Monitoring Suppl (BLOOD GLUCOSE METER) Does not apply Kit , by Does not apply route. 1. Brand:free style 2. Dx: diabetes 3. Insulin dependent 4. Test Blood Glucose 2 time(s) A DAY,Disp: 1 Kit, Rfl: 0 clopidogrel (PLAVIX) 75 MG Oral Tab, Take 1 Tab by mouth DAILY., Disp: 90 Tab, Rfl: 3 docusate sodium (COLACE) 100 MG Oral Cap, Take 1 Cap by mouth TWICE DAILY., Disp: 30 Cap, Rfl: 0 Dulaglutide (TRULICITY) 1.5 MG/0.5ML Subcutaneous Solution Pen-injector , Inject 1 Appl beneath the skin EVERY 7 DAYS., Disp: 6 mL, Rfl: 3 estrogens, conjugated (PREMARIN) 0.625 MG/GM Vaginal Cream, 0.5 Applicators by Topical routeEVERY 7 DAYS., Disp: 90 g, Rfl: 0 ezetimibe (ZETIA) 10 MG Oral Tab, Take 1 Tab by mouth DAILY., Disp: 90 Tab, Rfl: 3 Glucose Blood (FREESTYLE LITE) In Vitro Strip, USE 1 STRIP INSTILL VITRO TWICE A DAY, Disp: 100 Strip, Rfl: 3 HYDROcodone-acetaminophen (NORCO) 5-325 MG Oral Tab, Take 1-2 Tabs by mouth EVERY FOUR HOURS NEEDED (pain). Max Daily Amount: 12 Tabs., Disp: 30 Tab, Rfl: 0 Insulin Glargine (LANTUS SOLOSTAR) 100 UNIT/ML Subcutaneous Solution Pen -injector, Inject 60Units beneath the skin EVERY BEDTIME. (Patient taking differently: Inject 50 Units beneath the skin EVERY BEDTIME.), Disp: 60 mL, Rfl : 3 Insulin Pen Needle (PEN NEEDLES 5/16") 30G X 8 MM Does not apply Misc, 1 Appl by Does not apply route THREE TIMES DAILY., Disp: 100 Each, Rfl: 3 Lancets 30G Does not apply Misc, 1 Each by Does not apply route TWICE DAILY. Freestyle Lite E11.9, Z79.4, Disp: 200 Each, Rfl: 3 lidocaine transdermal patch (LIDODERM) 5 % Apply externally Patch, 1 Patch by Topical route DAILY. 12 hours on and 12 hours off, Disp: 90 Patch, Rfl : 3 Omeprazole 20 MG Oral Tab EC, Take 1 Tab by mouth DAILY., Disp: 90 Tab, Rfl: 3 simvastatin (ZOCOR) 40 MG Oral Tab, Take 40 mg by mouth DAILY., Disp: , Rfl: ALLERGIES: She is allergic to actos [pioglitazone hydrochloride]; alc-sertraline ; belladonna; glipizide; metformin; percocet [oxycodone-acetaminophen]; pneumovax [pneumococcal polysaccharides]; sitagliptin phosphate; statins; valium ; and victoza [liraglutide]. SOCIAL HISTORY: She reports that she quit smoking about 16 years ago. Her smoking use included cigarettes. She smoked 0.00 packs per day. She has never used smokeless tobacco. She reports current alcohol use. She reports that she does not use drugs. FAMILY HISTORY: family history includes Colon Cancer in her father; Heart in her unknown relative. ROS: Nursing Notes: Katy Aranda 07/20/2019 8:03 AM Signed NAME: Martine Munoz : 1945 DATE OF SERVICE: 07/20/2019 CONSTITUTIONAL: negative. HEENT: negative. EYES: negative. RESPIRATORY: negative. CARDIOVASCULAR: negative. GASTROINTESTINAL: negative. GENITOURINARY: negative. INTEGUMENT/BREAST: negative. HEMATOLOGIC/LYMPHATIC: negative. MUSCULOSKELETAL: Positive. Left wrist. Patient here for a second opinion. Surgery 05-12-19. NEUROLOGICAL: negative. BEHAVIORAL/PSYCH: negative. ENDOCRINE: Negative. ALLERGIC/IMMUNOLOGIC: Negative. Body mass index is 27.06 kg/m. AUTHOR: Katy Aranda 07/20/2019 08:03 I reviewed the above and have made changes as appropriate. Physical Exam: Vitals: BP 122/71 Pulse 66 Ht 5' 8" (1.727 m) Wt 178 lb (80.7 kg) BMI 27.06 kg/m2 Gen: NAD, A&Ox3 SKIN/PALPATION: Normal rugal patterns, sweat, turgor, and temperature. Cuticles , nails, nail curvature, and pulp bulk are essentially normal in appearance. No skin changes. SWELLING: none WARMTH: no warmth DEFORMITY: no gross deformity or malalignment NEUROLOGICAL EXAM: Sensation intact to light touch. VASCULAR EXAM: Capillary refill is <2 seconds. There is a well-healed scar dorsally on the right. The patient has profound stiffness of all of thedigits. On the left there is a volar scar with some hypertrophy and delayed healing. She has stiffness in all of her fingers. Imaging & Tests: Assessment: ICD-9-CM ICD-10-CM 1. Stiffness in joint 719.50 M25.60 ANTI NUCLEAR ANTIBODY CBC WITH DIFFERENTIAL COMPREHENSIVE METABOLIC PANEL C-REACTIVE PROTEIN CYCLIC CITRULLINE PEPTIDE ANTIBODY IGG RHEUMATOID FACTOR SEDIMENTATION RATE URIC ACID REFER TO OCCUPATIONAL THERAPY / REHAB I would like to check for any rheumatological disorder. The patient also needs to be seen by a CHT for treatment of her stiffness Plan & Discussion: --Rheumatological screening labs CHT for treatment of finger stiffness I will see her back in clinic in approximately 4 weeks Pino Hatfield MD Hand Surgery 07/20/2019 documented in this encounter Plan of Treatment Date Type Specialty Care Team Description 07/26/2019 Ancillary Procedure Radiology 10/16/2019 Lab Internal Medicine 10/23/2019 Office Visit Internal Medicine Lety Kirkpatrick MD [address] [place] [id number] 01/03/2020 Office Visit Cardiology Hernan Osuna MD [address] [place] [address] Name Type Priority Associated Diagnoses Order Schedule ANTI NUCLEAR ANTIBODY Lab Routine Stiffness in joint Expected: 07/20/2019 (Approximate), Expires: 07/20/2020 CBC WITH DIFFERENTIAL Lab Routine Stiffness in joint Expected: 07/20/2019 (Approximate), Expires: 07/20/2020 COMPREHENSIVE METABOLIC Lab Routine Stiffness in joint Expected: 07/20/2019 PANEL (Approximate), Expires: 07/20/2020 C-REACTIVE PROTEIN Lab Routine Stiffness in joint Expected: 07/20/2019 (Approximate), Expires: 07/20/2020 CYCLIC CITRULLINE PEPTIDE Lab Routine Stiffness in joint Expected: 2018 ANTIBODY IGG (Approximate), Expires: 07/20/2020 RHEUMATOID FACTOR Lab Routine Stiffness in joint Expected: 07/20/2019 (Approximate), Expires: 07/20/2020 SEDIMENTATION RATE Lab Routine Stiffness in joint Expected: 07/20/2019 (Approximate), Expires: 07/20/2020 URIC ACID Lab Routine Stiffness in joint Expected: 07/20/2019 (Approximate), Expires: 07/20/2020 Name Type Priority Associated Diagnoses Order Schedule REFER TO OCCUPATIONAL Referral Routine Stiffness in joint 99 Occurrences THERAPY / REHAB starting 07/20/2019 until 07/20/2020 Health Maintenance Due Date Last Done Comments MEDICARE ANNUAL WELLNESS 1945 VISIT ZOSTER IMMUNIZATION SERIES 12/10/2016 10/15/2016 (2 of 3) MAMMOGRAM (SCREENING) 02/25/2017 02/26/2016, 01/10/2009 FOOT EXAM 11/09/2018 11/09/2017, 11/09/2017, 11/09/2017, Additional history exists OSTEOPOROSIS SCREENING 04/23/2019 04/23/2009 HEMOGLOBIN A1C 09/16/2019 06/16/2019, 02/10/2019, 10/06/2018, Additional history exists Diabetic Eye Exam 10/12/2019 10/12/2018, 10/12/2018, 09/20/2017 FALL RISK ASSESSMENT 10/13/2019 10/13/2018, 10/13/2018 URINE MICROALBUMIN 10/13/2019 10/13/2018, 05/25/2017, 06/22/2016, Additional history exists DEPRESSION SCREENING 02/21/2020 02/20/2019 HIV SCREENING 06/23/2020 Postponed from 1959 (Patient refused) LIPID DISORDER SCREENING 06/23/2020 06/23/2019, 06/16/2019, 02/10/2019, Additional history exists Colonoscopy 06/01/2023 06/01/2018, 06/01/2018, 04/10/2015 (Postponed), Additional history [...] Type Problems Progress Blood Pressure Blood Pressure 122/71 No Crepet, < 140/90 (07/20/2019 MD Lety 8:01 AM EST) Note: This is an individualized [...] < 7.0 Diabetes DM (diabetes 7.4 (06/16/2019 Lety Goldberg MD mellitus), type 2, 8:11 AM EDT) [...] my blood sugar results (including dextrose sticks). [facility] is safe and secure way for you [...] filedocumented in this encounter Visit Diagnoses Diagnosis Stiffness in joint - Primary Stiffness of joint, not elsewhere classified, unspecified site documented in this encounter Guarantor Name Account Type Relation to Date of Phone Billing Patient Address Martine Munoz Personal/Family 1945 [address] (Home) [address] [place], [place] ([place]) [address] documented as of this encounter Advance Directives Code Status Date Activated Date Inactivated Comments Full Code 06/01/2009 4:12 PM 06/03/2009 5:15 PM Full Code 03/02/2007 9:04 AM 03/03/2007 5:01 AM
[2019-08-16] MEDS ORDERED: Iodixanol* (CONTRAST) 320 MG/ML 100 ML SDV IV ONE (19:19)
[2019-08-16 19:38] LABS: Microcytosis 2+; Polychromasia 1+
[2019-08-16] MEDS ORDERED: Morphine 4 MG/ML VIAL (1 ml) 4 MG/ML VIAL IV ONE ×2 (19:42→21:02)
[2019-08-16] MEDS ORDERED: Lidocaine PATCH 5%* 1 PATCH TRANSDERM ONE (21:10)
[2019-08-16] MEDS ORDERED: Ketorolac INJ* 30 MG/ML 1 ML VIAL IV ONE (21:12)
[2019-08-16] MEDS ORDERED: Acetaminophen TAB* 325 MG PO PRN (23:24)
[2019-08-16] MEDS ORDERED: Ketorolac TAB * 10 MG TAB PO PRN (23:25)
[2019-08-16 23:45] LABS: Urine Appearance Clear; Urine Bilirubin Negative (Negative); Urine Blood Negative (Negative); Urine Color Yellow; Urine Glucose Negative (Negative); Urine Ketones Negative (Negative); Urine Nitrite Negative (Negative); Urine Protein Negative (Negative); Urine Urobilinogen Negative (Negative)
[2019-08-16] MEDS ORDERED: Enoxaparin(*) 40 MG/0.4 ML SYR SUBCUT SCH (23:45)
[2019-08-17] MEDS: HYDROcodone/ACETAMIN 5-325 MG* 1 TAB PO PRN ×2 (01:01→12:20)
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
[2019-08-17 06:22] LABS: ABS Eosinophils 0.1 10^3/ul (0-0.6); ABS Lymphocytes 1.4 10^3/ul (1.0-4.8); ABS Monocytes 0.3 10^3/ul (0-0.8); ABS Neutrophils 2.4 10^3/ul (1.5-7.7); Eosinophil % 3.4 %; Hematocrit 29 % (35-47); Hemoglobin 9.1 g/dL (12.0-16.0); Lymphocyte % 32.9 %; Mean Corpuscular HGB Conc 31 g/dL (31-36); Mean Corpuscular Hemoglobin 23 pg (27-31); Mean Corpuscular Volume 72 fL (80-97); Nucleated Red Blood Cells % 0.1; Platelet Count 230 10^3/uL (150-450); Red Blood Count 4.04 10^6 /uL (3.70-4.87); Red Cell Distribution Width 17 % (10-15); White Blood Count 4.4 10^3/uL (3.5-10.8)
[2019-08-17 06:36] LABS: Anion Gap 5 mmol/L (2-11); BUN/Creatinine Ratio 20.7 (8-20); Blood Urea Nitrogen 19 mg/dL (6-24); CO2 Carbon Dioxide 28 mmol/L (22-32); Calcium 8.8 mg/dL (8.6-10.3); Chloride 104 mmol/L (101-111); EGFR Non-African American 59.5 (>60); Glucose 133 mg/dL (70-100); Potassium 4.1 mmol/L (3.5-5.0); Sodium 137 mmol/L (135-145)
[2019-08-17 06:48] LABS: % Iron Saturation 8 % (15-55); Iron 34 ug/dL (50-212); Total Iron Binding Capacity 426 mcg/dL (250-450); Transferrin 304 mg/dL (203-362)
[2019-08-17 07:11] LABS: Ferritin 8.7 ng/mL (11-307)
[2019-08-17 07:14] LABS: Folate 9.43 ng/mL (>3.99)
[2019-08-17] MEDS ORDERED: Pantoprazole TAB * 40 MG TAB PO SCH (09:00)
[2019-08-17] MEDS ORDERED: Lidocaine PATCH 5%* 1 PATCH TRANSDERM SCH (09:00)
[2019-08-17] MEDS ORDERED: Clopidogrel TAB* 75 MG PO SCH (09:00)
[2019-08-17] MEDS ORDERED: Ezetimibe TAB* 10 MG PO SCH (09:00)
[2019-08-17] MEDS ORDERED: Ferrous Sulfate TAB* 325 MG PO SCH (09:00)
[2019-08-17] MEDS ORDERED: Iron Sucrose* 200 MG in NS 0.9% 100 ML* 100 ML IVPB ONE (09:05)
[2019-08-17 11:37] VITALS: BP 120/60
[2019-08-17] MEDS ORDERED: Insulin GLARGINE(*) 1 UNITS UNIT SUBCUT SCH (18:00)
[2019-08-17] MEDS ORDERED: Lidocaine Patch REMOVE* 1 NOTE MISC SCH (21:00)
[2019-08-17] MEDS ORDERED: Atorvastatin* 20 MG TAB PO SCH (21:00)
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
== END 2019-08-17 13:00 | disposition home or self-care (01) ==
LOC: ED 18:11 → MED 23:19
PROVIDERS: ADMIT Internal Medicine; ATTEND Internal Medicine
DX: S20.211A Contusion of right front wall of thorax, initial encounter (principal); D50.9 Iron deficiency anemia, unspecified; R06.02 Shortness of breath; W22.09XA Striking against other stationary object, initial encounter; Y92.9 Unspecified place or not applicable; E11.9 Type 2 diabetes mellitus without complications; I77.71 Dissection of carotid artery; E78.5 Hyperlipidemia, unspecified; I25.10 Atherosclerotic heart disease of native coronary artery without angina pectoris; Z86.711 Personal history of pulmonary embolism; Z79.4 Long term (current) use of insulin; Z79.01 Long term (current) use of anticoagulants; Z79.899 Other long term (current) drug therapy; Z87.891 Personal history of nicotine dependence
CPT/HCPCS: 36415; 71260; 74177; 80048; 80053; 81003; 82607; 82728; 82746; 83540; 83550; 83605; 85025; 86850; 86900; 86901; 96365; 96366; 96372; 96375; 96376; 99285; A9270-GY; G0378; J1650; J1756; J1885; J2270; Q9967